=== PATIENT | male | born 1960 | race African-American/Black ===

== ENCOUNTER 2017-03-22 10:22 | Inpatient (IN) | payer BC, OTHER ==
[2017-03-22 10:33] VITALS: BMI 30.8
--- NOTE | 2017-03-22 11:35 | PDOC ---
Attending Attestation - Resident Resident Name: ClaudeMattil - ED Attending Attestation I have performed the following: I have examined & evaluated the patient, The case was reviewed & discussed with the resident, I agree w/resident's findings & plan, Exceptions are as noted - HPI HPI: 03/22/17 11:48 57yo male with slurred speech x 7 days, dx with CVA last night at [facility] and signed out AMA. Here today for further eval. No new complaints. Still with mild slurred speech. - Physicial Exam PE: 03/22/17 11:51 gen: aaox3, nad head: nc/at heent: mild L facial droop, PERRL, EOMI Neck: supple Heart: rrr lungs: cta b/l abd: soft, nt/nd +bs ext: paresthesias to B/l UE, BKA b/l LE, wheelchair bound, muscle strength 5/5 UE Neuro: mild slurred speech, mild expressive aphasia, mild L facial droop. skin: no rashes - Medical Decision Making 03/22/17 13:19 a/p: 57yo male with 1 week hx of slurred speech -out of the window for TPA -had CT head last night that showed cva - will obtain results -will need MRI and admission for cva workup and further eval. 03/22/17 13:[address] Chaudhary from neuro who will see the patient in consult. recommends admission 03/22/17 13:23 call placed to hospitalist for admission. 03/22/17 13:23 ct head from [facility] shows right basal ganglia and r thalamic lacunar infarcts 03/22/17 13:[address] Chandler who accepts pt to service under Dr. Murphy Discharge Disposition - Diagnosis Cerebrovascular accident (CVA) - Discharge Dispostion Condition at time of disposition: Guarded Last Admission D/C Date: 01/21/16 Admit: Yes Heart Score/ECG Review - ECG Intrepretation Comment:: 03/22/17 13:22 sinus tach at 101, nl axis, nl interval, no acute st/t wave findings NIH Stroke Scale - Last Known Well Date/Time & Onset Date Last Known Well: 03/15/17 - Initial Evaluation Level of consciousness: Alert Ask patient the month and their age: Answers both correctly Ask patient to open & close eyes; make fist and let go: Obeys both correctly Best gaze (horizontal eye movement): Normal Visual field testing: No visual field loss Facial paresis (Show teeth/raise eyebrows/close eyes tight): Minor paralysis ( flattened nasolabial fold, asymmetry on smiling) Motor Function: Left Arm: Normal Motor Function: Right Arm: Normal (extends arm 90 (or 45) degrees for 10 seconds without drift Motor Function: Left Leg: Normal (extends leg 30 degrees for 5 seconds without drift) Motor Function: Right Leg: Normal (extends leg 30 degrees for 5 seconds without drift) Limb Ataxia: Untestable (Joint fused or limb amputated), explain: (amputated BKA b/l) Sensory(Use pinprick test arms,legs,trunk,face/side to side): Mild to moderate decrease in sensation Best language (Describe picture, name items, read sentences): No Aphasia Dysarthria (read several words): Mild to moderate slurring of words Extinction and Inattention: No abnormality - Total Score NIH Stroke Scale Score: 3
--- NOTE | 2017-03-22 11:40 | PDOC ---
History of Present Illness - General Chief Complaint: CVA/TIA Stated Complaint: STROKE LIKE SYMPTOMS Time Seen by Provider: 03/22/17 10:45 History Source: Patient Exam Limitations: No Limitations - History of Present Illness Initial Comments: 03/22/17 12:33 57 y.o. M with pmh of DVT/Bl PE, HTN, HLD, DM, neuropathy, and Left BKA/Right foot amputation presenting for slurred speech x 7 days. Patient went to [facility] yesterday and was told he had an acute stroke on CT. He left AMA after he was not given any of his home medications. Patient states his told him he was having intermittent slurred speech. Patient did not feel he was having any slurred speech, so he waited to come to the ED. Patient also endorses lip numbness. Patient denies headache, blurry vision, weakness, numbness, chest pain , sob. Allergies: chlorpromazine, simvastatin Past surgical history: Right foot amputation, left BKA Social history: Current 1/2 ppd smoker x 30 yrs, denies alcohol, previous heroin abuser PMD - Dr. Arroyo ([place]) Vascular Surgery- Dr. Hough Past History - Past Medical History Allergies/Adverse Reactions: Allergies Allergy/AdvReac Type Severity Reaction Status Date / Time chlorpromazine HCl Allergy Intermediate Difficulty Verified 03/22/17 11:43 [From Thorazine] Breathing simvastatin Allergy Intermediate Itching Verified 03/22/17 11:43 Home Medications: Ambulatory Orders RX: Oxycodone HCl [Roxicodone -] 10 mg PO Q8H PRN 04/25/15 RX: Amitriptyline HCl [Elavil -] 50 mg PO BID tablet 01/19/16 RX: Pregabalin [Lyrica -] 150 mg PO TID #7 capsule MDD 3 01/19/16 RX: Trazodone HCl [Desyrel -] 150 mg PO HS tablet 01/19/16 Apixaban [Eliquis] 2.5 mg PO BID 03/22/17 Insulin Glargine,Hum.rec.anlog [Lantus Solostar PEN (NF)] 30 units SQ HS Metformin HCl [Metformin HCl ER] 1,000 mg PO DAILY 03/22/17 Naloxegol Oxalate [Movantik] 25 mg PO DAILY 03/22/17 RX: Omeprazole 20 mg PO DAILY 03/22/17 Anemia: No Asthma: No Cancer: Yes (poor circulation) Cardiac Disorders: No CVA: Yes (multiple TIA no residual) COPD: No CHF: No Dementia: No Diabetes: Yes (neuropathy) GI Disorders: No Disorders: No HTN: Yes Hypercholesterolemia: Yes Liver Disease: No Seizures: No Thyroid Disease: No - Surgical History Abdominal Surgery: No Appendectomy: No Cardiac Surgery: Yes (STENT) Cholecystectomy: No Lung Surgery: No Neurologic Surgery: No Orthopedic Surgery: No - Immunization History Immunization Up to Date: Yes - Suicide/Smoking/Psychosocial Hx Smoking History: Current every day smoker Have you smoked in the past 12 months: Yes Number of Cigarettes Smoked Daily: 10 If you are a former smoker, when did you quit?: NOVEMBER 2014 Cigars Per Day: 10 Information on smoking cessation initiated: No 'Breaking Loose' booklet given: 01/13/16 Hx Alcohol Use: No Drug/Substance Use Hx: No Substance Use Type: None Hx Substance Use Treatment: No Review of Systems - Review of Systems Comments:: 03/22/17 12:37 GENERAL/CONSTITUTIONAL: No fever or chills. No weakness. HEAD, EYES, EARS, NOSE AND THROAT: No change in vision. No ear pain or discharge. No sore throat. +slurred speech CARDIOVASCULAR: No chest pain or shortness of breath RESPIRATORY: No cough, wheezing, or hemoptysis. GASTROINTESTINAL: No nausea, vomiting, diarrhea or constipation. GENITOURINARY: No dysuria, frequency, or change in urination. MUSCULOSKELETAL: No joint or muscle swelling or pain. No neck or back pain. SKIN: No rash NEUROLOGIC: No headache, vertigo, loss of consciousness, or change in strength/ sensation. ENDOCRINE: No increased thirst. No abnormal weight change HEMATOLOGIC/LYMPHATIC: No anemia, easy bleeding, or history of blood clots. ALLERGIC/IMMUNOLOGIC: No hives or skin allergy. *Physical Exam - Vital Signs Last Vital Signs Temp Pulse Resp BP Pulse Ox 98.5 F 118 H 17 149/78 98 03/22/17 10:29 03/22/17 10:29 03/22/17 10:29 03/22/17 10:29 03/22/17 10:29 - Physical Exam Comments: 03/22/17 12:38 GENERAL: Awake, alert, and fully oriented, in no acute distress. +disheveled. + covered in urine HEAD: No signs of trauma, normocephalic, atraumatic EYES: PERRLA, EOMI, sclera anicteric, conjunctiva clear ENT: Oropharynx clear without exudates. Moist mucosa NECK: Normal ROM, supple, no lymphadenopathy, JVD, or masses LUNGS: No distress, speaks full sentences, clear to auscultation bilaterally HEART: Regular rate and rhythm, normal S1 and S2, no murmurs, rubs or gallops, peripheral pulses normal and equal bilaterally. ABDOMEN: Soft, nontender, normoactive bowel sounds. No guarding, no rebound. No masses EXTREMITIES: Normal inspection, Normal range of motion, no edema. No clubbing or cyanosis. +left BKA, +right foot amputation, +right leg venous stasis changes NEUROLOGICAL: Cranial nerves II through XII grossly intact. +minimal slurred speech, Patient in wheelchair, 5/5 strength UE SKIN: Warm, Dry, normal turgor, no rashes or lesions noted. ED Treatment Course - LABORATORY CBC & Chemistry Diagram: 03/22/17 13:00 03/22/17 13:00 Medical Decision Making - Medical Decision Making 03/22/17 13:04 Assessment: 57 y.o. M with pmh of DVT/Bl PE, HTN, HLD, DM, neuropathy, and Left BKA/Right foot amputation presenting for slurred speech x 7 days Plan: -CBC, CMP, Mg, PT/INR, PTT, EKG, CXR 03/22/17 13:44 Ct Head from [facility] shows basal ganglia and thalamic lacunar infarcts Patient admitted to hospitalist *DC/Admit/Observation/Transfer Diagnosis at time of Disposition: Cerebrovascular accident (CVA) - Discharge Dispostion Condition at time of disposition: Guarded
[2017-03-22 13:16] LABS: BASOPHIL 0.5 % (0-2.0); EOSINOPHIL 0.2 % (0-4.5); MCH 29.5 pg (25.7-33.7); MCHC 33.8 g/dl (32.0-35.9); MEAN CELL VOLUME 87.1 fl (80-96); MEAN PLT VOLUME 8.2 fl (7.5-11.1); NEUTROPHILS 84.1 % (42.8-82.8); PLATELET COUNT 199 K/MM3 (134-434); RDW 14.3 % (11.9-15.9); WHITE BLOOD COUNT 8.6 K/mm3 (4.0-10.0)
[2017-03-22 13:30] LABS: INR 1.11 (0.82-1.09); PROTHROMBIN TIME (PATIENT) 12.2 SEC (9.98-11.88)
[2017-03-22 13:33] LABS: ACTIVATED PTT 29.3 SECONDS (26.9-34.4)
--- NOTE | 2017-03-22 13:55 | HP ---
CHIEF COMPLAINT: one week history of facial drop and slurred speech, lip numbness PCP: Dr. Ramírez Arroyo Vasculr surgeon HISTORY OF PRESENT ILLNESS: 57 y.o. M with pmh of DVT/Bl PE, HTN, HLD, DM, neuropathy, and Left BKA/Right foot amputation presenting for slurred speech x 7 days. Patient went to [facility] yesterday and was told he had an acute stroke on CT. He left AMA after he was not given any of his home medications. Patient states his told him he was having intermittent slurred speech. Patient did not feel he was having any slurred speech, so he waited to come to the ED. Patient also endorses lip numbness. Patient denies headache, blurry vision, weakness, numbness, chest pain , sob, N/V/D/, he denies any weakness on numbness in his extremities. He claims he can not make it to bathroom during last week. ER course was notable for: (1)BP: 178/98, Tachycardic (2)EKG: Non specific T wave change in lateral leads (3) Neurology consulted Recent Travel: None PAST MEDICAL HISTORY: HTN, HLD, DM, Left BKA/Right foot amputation, Neuropathy , DVT/PE. PAST SURGICAL HISTORY: Right foot amputation, Left BKA, cataract. Social History: Smokin/2 pack/20 years Alcohol:denied Drugs: Previous heroin/ on methadone Family History: Dad had cancer, mom had breat cancer Allergies chlorpromazine HCl [From Thorazine] Allergy (Intermediate, Verified 03/22/17 11: 43) Difficulty Breathing simvastatin Allergy (Intermediate, Verified 03/22/17 11:43) Itching HOME MEDICATIONS: Home Medications Medication Instructions Recorded Oxycodone HCl [Roxicodone -] 10 mg PO Q8H PRN 04/25/15 Amitriptyline HCl [Elavil -] 50 mg PO BID tablet 01/19/16 Pregabalin [Lyrica -] 150 mg PO TID #7 capsule MDD 3 01/19/16 Trazodone HCl [Desyrel -] 150 mg PO HS tablet 01/19/16 Apixaban [Eliquis] 2.5 mg PO BID 03/22/17 Insulin Glargine,Hum.rec.anlog 30 units SQ HS 03/22/17 [Lantus Solostar PEN (NF)] Metformin HCl [Metformin HCl ER] 1,000 mg PO DAILY 03/22/17 Naloxegol Oxalate [Movantik] 25 mg PO DAILY 03/22/17 Omeprazole 20 mg PO DAILY 03/22/17 REVIEW OF SYSTEMS CONSTITUTIONAL: Absent: fever, chills, diaphoresis, generalized weakness, malaise, loss of appetite, weight change HEENT: Absent: rhinorrhea, nasal congestion, throat pain, throat swelling, difficulty swallowing, mouth swelling, ear pain, eye pain, visual changes CARDIOVASCULAR: Absent: chest pain, syncope, palpitations, irregular heart rate, lightheadedness , peripheral edema RESPIRATORY: Absent: cough, shortness of breath, dyspnea with exertion, orthopnea, wheezing, stridor, hemoptysis GASTROINTESTINAL: Absent: abdominal pain, abdominal distension, nausea, vomiting, diarrhea, constipation, melena, hematochezia GENITOURINARY: Absent: dysuria, frequency, urgency, hesitancy, hematuria, flank pain, genital pain MUSCULOSKELETAL: Absent: myalgia, arthralgia, joint swelling, back pain, neck pain SKIN: Absent: rash, itching, pallor HEMATOLOGIC/IMMUNOLOGIC: Absent: easy bleeding, easy bruising, lymphadenopathy, frequent infections ENDOCRINE: Absent: unexplained weight gain, unexplained weight loss, heat intolerance, cold intolerance NEUROLOGIC: Absent: headache, focal weakness or paresthesias in his lips, dizziness, , seizure, mental status changes, bladder incontinence PSYCHIATRIC: Absent: anxiety, depression, suicidal or homicidal ideation, hallucinations. PHYSICAL EXAMINATION Vital Signs - 24 hr 03/22/17 03/22/17 03/22/17 10:29 13:00 13:28 Temperature 98.5 F Pulse Rate 118 H Pulse Rate [ 92 H Radial] Respiratory 17 18 Rate Blood Pressure 149/78 Blood Pressure 175/86 [Right Arm] O2 Sat by Pulse 98 99 97 Oximetry (%) GENERAL: Awake, alert, and fully oriented, in no acute distress. HEAD: Normal with no signs of trauma. EYES: sclera anicteric, conjunctiva clear. EARS, dry mucous membranes. NECK: Normal range of motion, supple without lymphadenopathy, JVD, or masses. LUNGS: Breath sounds equal, clear to auscultation bilaterally. No wheezes, and no crackles. No accessory muscle use. HEART: Regular rate and rhythm, normal S1 and S2 without murmur, rub or gallop. ABDOMEN: Soft, nontender, not distended, normoactive bowel sounds, no guarding, no rebound, no masses. MUSCULOSKELETAL: Normal range of motion at all joints. No bony deformities or tenderness. UPPER EXTREMITIES: 2+ pulses, warm, well-perfused. No cyanosis. No clubbing. No peripheral edema. LOWER EXTREMITIES: Left BKA/Right foot amputation NEUROLOGICAL: Little slurry speech. smile assymetry left angular drop PSYCHIATRIC: Cooperative. Good eye contact. Appropriate mood and affect. SKIN: Warm, dry, no rashes or lesions noted, normal capillary refill. Laboratory Results - last 24 hr 03/22/17 03/22/17 13:00 13:00 WBC 8.6 RBC 4.29 D Hgb 12.6 D Hct 37.4 D MCV 87.1 MCH 29.5 MCHC 33.8 RDW 14.3 Plt Count 199 D MPV 8.2 Neutrophils % 84.1 H D Lymphocytes % 12.7 D Monocytes % 2.5 L Eosinophils % 0.2 D Basophils % 0.5 Magnesium 1.6 L ASSESSMENT/PLAN: This is a 57 year old man with a history of HTN, hyperlipidemia, type 2 DM, DVT , PE, IVC filter, PAD, left BKA, right foot amputation, depression who presented to the ER with slurred speech, left sided weakness and lip numbness x 7 days. # Possible recent CVA * One wek H/O slurred speech and little facial drop * MRI/MRA of brain * Start aspirin 325 mg in ED, continue 81 mg daily * Has allergy to Zocor * Neurology consult # Hypertension * Currently on no meds * medical record shows Has been on Vasotec, Labetalol, HCTZ in past * Start Vasotec 10 mg daily , increase dose if needed # Hyperlipdemia * Not on any statin due to Zocor allergy # Type 2 DM * Continue Lantus * Hold metformin * Fingersticks with Novolog sliding scale #Diabetic peripheral neuropathy * Continue Lyrica, Elavil # History of DVT/PE * Continue Eliquis 2.5 mg BID daily * Has IVC filter #Depression * Continue home meds Trazodone, Elavil # PAD, * history of left BKA, right foot amputation #FEN * F: On no fluids * E: Monitor * N: low sodium, diabetic diet * # Proph: * DVT: on ELiquis , IVC filter * GI : Protonix 20 mg Po daily * # Dispo * Admit to observ Visit type - Emergency Visit Emergency Visit: Yes ED Registration Date: 03/22/17 Care time: The patient presented to the Emergency Department on the above date and was hospitalized for further evaluation of their emergent condition. - New Patient This patient is new to me today: Yes Date on this admission: 03/23/17 - Critical Care Critical Care patient: No
[2017-03-22 13:59] LABS: ALBUMIN 3.8 g/dl (3.4-5.0); ALK PHOS 157 U/L (45-117); ANION GAP 9 (8-16); BILIRUBIN,TOTAL 0.3 mg/dL (0.2-1.0); CALCIUM 9.1 mg/dL (8.5-10.1); CO2 27 mmol/L (21-32); CREATININE 0.9 mg/dL (0.7-1.3); SGOT/AST 45 U/L (15-37); SGPT/ALT 46 U/L (12-78); TOT PROT 7.6 g/dl (6.4-8.2)
[2017-03-22 14:12] LABS: GLUCOSE,RANDOM 340 mg/dL (74-106)
--- NOTE | 2017-03-22 14:14 | EKG ---
Test Reason : Blood Pressure : / mmHG Vent. Rate : 101 BPM Atrial Rate : 101 BPM P-R Int : 184 ms QRS Dur : 088 ms QT Int : 372 ms P-R-T Axes : 069 046 080 degrees QTc Int : 482 ms SINUS TACHYCARDIA POSSIBLE LEFT ATRIAL ENLARGEMENT BORDERLINE ECG WHEN COMPARED WITH ECG OF 12-JAN-2016 20:48, NONSPECIFIC T WAVE ABNORMALITY NOW EVIDENT IN LATERAL LEADS QT HAS LENGTHENED REPEAT EKG IF CLINICALLY INDICATED Confirmed by CHRISTOFER ANDERSON MD ([id number]) on 03/22/2017 2:13:59 PM Referred By: Confirmed By:CHRISTOFER ANDERSON MD
--- NOTE | 2017-03-22 14:55 | HP ---
CHIEF COMPLAINT: left sided weakness and numbness PCP: Dr. Arroyo in [place] HISTORY OF PRESENT ILLNESS: This is a 57 year old male who was brought to the emergency room by ambulance due to symptoms of lip numbness, slurred speech and left sided weakness for the past 5-7 days. He was recently admitted to [facility] for same symptoms and was found to have a right basal ganglia and right thalamic lacunar infarct, found on head CT. Patient left AMA, claims he was not given his medications. As per patient, stated that he has had intermittent slurred speech since leaving [facility], which prompted him to come to [facility]. Patient admits to lethargy, slurred speech and decreased sensation of left upper and lower extremities. He denies lightheadedness, headache, dizziness, blurry vision, chest pain, sob, weakness. Mr. Brumfield is a diabetic who suffers from diabetic neuropathy, with left BKA and right foot amputation. He also has a past medical history of dvt/PE, hypertension, hyperlipidema. In the ER patient had blood pressure of 178/98, and tachycardic. ECG showing new non specific t wave changes of lateral leads. Neurology consulted, stroke work up indicated. Recent Travel: PAST MEDICAL HISTORY: TIA,DVT/Bl PE, HTN, HLD, DM, neuropathy, and Left BKA/Right foot amputation PAST SURGICAL HISTORY: BKA left Social History: Smokin.2 ppd Alcohol:no Drugs: previous heroin user Family History: Allergies chlorpromazine HCl [From Thorazine] Allergy (Intermediate, Verified 03/22/17 11: 43) Difficulty Breathing simvastatin Allergy (Intermediate, Verified 03/22/17 11:43) Itching HOME MEDICATIONS: Home Medications Medication Instructions Recorded Oxycodone HCl [Roxicodone -] 10 mg PO Q8H PRN 04/25/15 Amitriptyline HCl [Elavil -] 50 mg PO BID tablet 01/19/16 Pregabalin [Lyrica -] 150 mg PO TID #7 capsule MDD 3 01/19/16 Trazodone HCl [Desyrel -] 150 mg PO HS tablet 01/19/16 Apixaban [Eliquis] 2.5 mg PO BID 03/22/17 Insulin Glargine,Hum.rec.anlog 30 units SQ HS 03/22/17 [Lantus Solostar PEN (NF)] Metformin HCl [Metformin HCl ER] 1,000 mg PO DAILY 03/22/17 Naloxegol Oxalate [Movantik] 25 mg PO DAILY 03/22/17 Omeprazole 20 mg PO DAILY 03/22/17 REVIEW OF SYSTEMS CONSTITUTIONAL: Positive; malaise, lethargy Absent: fever, chills, diaphoresis, generalized weakness, malaise, loss of appetite, weight change HEENT: Absent: rhinorrhea, nasal congestion, throat pain, throat swelling, difficulty swallowing, mouth swelling, ear pain, eye pain, visual changes CARDIOVASCULAR: Absent: chest pain, syncope, palpitations, irregular heart rate, lightheadedness , peripheral edema RESPIRATORY: Absent: cough, shortness of breath, dyspnea with exertion, orthopnea, wheezing, stridor, hemoptysis GASTROINTESTINAL: Absent: abdominal pain, abdominal distension, nausea, vomiting, diarrhea, constipation, melena, hematochezia GENITOURINARY: Absent: dysuria, frequency, urgency, hesitancy, hematuria, flank pain, genital pain MUSCULOSKELETAL: Absent: myalgia, arthralgia, joint swelling, back pain, neck pain SKIN: Absent: rash, itching, pallor HEMATOLOGIC/IMMUNOLOGIC: Absent: easy bleeding, easy bruising, lymphadenopathy, frequent infections ENDOCRINE: Absent: unexplained weight gain, unexplained weight loss, heat intolerance, cold intolerance NEUROLOGIC: Positive: paresthesias Absent: headache, focal weakness or, dizziness, unsteady gait, seizure, mental status changes, bladder or bowel incontinence PSYCHIATRIC: Positive:depression Absent: anxiety, suicidal or homicidal ideation, hallucinations. PHYSICAL EXAMINATION Vital Signs - 24 hr 03/22/17 03/22/17 03/22/17 10:29 13:00 13:28 Temperature 98.5 F Pulse Rate 118 H Pulse Rate [ 92 H Radial] Respiratory 17 18 Rate Blood Pressure 149/78 Blood Pressure 175/86 [Right Arm] O2 Sat by Pulse 98 99 97 Oximetry (%) 03/22/17 14:18 Temperature Pulse Rate Pulse Rate [ 100 H Radial] Respiratory 12 Rate Blood Pressure Blood Pressure 178/99 [Right Arm] O2 Sat by Pulse 100 Oximetry (%) GENERAL: Not willing/able to answer in full sentences, alert, and fully oriented , HEAD: Normal with no signs of trauma. EYES: Pupils equal, round and reactive to light, extraocular movements intact, sclera anicteric, conjunctiva clear. No lid lag. bilateral cataract EARS, NOSE, THROAT: Ears normal, nares patent, oropharynx clear without exudates. Moist mucous membranes. NECK: Normal range of motion, supple without lymphadenopathy, JVD, or masses. LUNGS: Breath sounds equal decreased, clear to auscultation bilaterally. No wheezes, and no crackles. No accessory muscle use. HEART: Regular rate and rhythm, normal S1 and S2 without murmur, rub or gallop. ABDOMEN: Soft, nontender, not distended, normoactive bowel sounds, no guarding, no rebound, no masses. No hepatomegaly or splenomegaly. MUSCULOSKELETAL: Normal range of motion at all joints. No bony deformities or tenderness. No CVA tenderness. UPPER EXTREMITIES: 2+ pulses, warm, well-perfused. No cyanosis. No clubbing. No peripheral edema. LOWER EXTREMITIES: 2+ pulses, warm, well-perfused. Left BKA, right foot amputation NEUROLOGICAL: Cranial nerves II-XII intact. slowed speech, PSYCHIATRIC: Cooperative. Good eye contact. depressed mood flat affect. SKIN: Warm, dry, normal turgor, no rashes or lesions noted, normal capillary refill. Laboratory Results - last 24 hr 03/22/17 03/22/17 03/22/17 13:00 13:00 13:00 WBC 8.6 RBC 4.29 D Hgb 12.6 D Hct 37.4 D MCV 87.1 MCH 29.5 MCHC 33.8 RDW 14.3 Plt Count 199 D MPV 8.2 Neutrophils % 84.1 H D Lymphocytes % 12.7 D Monocytes % 2.5 L Eosinophils % 0.2 D Basophils % 0.5 PT with INR 12.20 H INR 1.11 PTT (Actin FS) 29.3 Sodium 134 L Potassium 4.5 Chloride 98 Carbon Dioxide 27 Anion Gap 9 BUN 8 Creatinine 0.9 D Creat Clearance w eGFR > 60 Random Glucose 340 H* Calcium 9.1 Magnesium Total Bilirubin 0.3 D AST 45 H D ALT 46 D Alkaline Phosphatase 157 H Total Protein 7.6 Albumin 3.8 D 03/22/17 13:00 WBC RBC Hgb Hct MCV MCH MCHC RDW Plt Count MPV Neutrophils % Lymphocytes % Monocytes % Eosinophils % Basophils % PT with INR INR PTT (Actin FS) Sodium Potassium Chloride Carbon Dioxide Anion Gap BUN Creatinine Creat Clearance w eGFR Random Glucose Calcium Magnesium 1.6 L Total Bilirubin AST ALT Alkaline Phosphatase Total Protein Albumin ASSESSMENT/PLAN: 57 year old male with a past medical history of TIA, DM, diabetic neuropathy, L BKA and right foot amputation, who presented with slurred speech and left upper and lower extremity paresthesias # slurred speech, weakness secondary to recent stroke:: -ct head from [facility] shows right basal ganglia and r thalamic lacunar infarcts -secondary stroke precautions -echo, carotid doppler -brain MRI/MRA -bedside swallow eval -allergic to statins -asa 81mg qd -neuro consult #hypertension: -start vasotec #hld: -lipid panel #hx. dvt/pe: -cont eliquis /dvt filter Visit type - Emergency Visit Emergency Visit: Yes ED Registration Date: 03/22/17 Care time: The patient presented to the Emergency Department on the above date and was hospitalized for further evaluation of their emergent condition. - New Patient This patient is new to me today: Yes Date on this admission: 03/22/17 - Critical Care Critical Care patient: No
[2017-03-22] MEDS ORDERED: SODIUM CHLORIDE 500 ML IV STA (15:38)
[2017-03-22] MEDS: ASPIRIN COATED 81 MG TABLET.EC PO SCH (16:57)
[2017-03-22] MEDS ORDERED: ENALAPRIL MALEATE 10 MG TABLET (FP) PO ONE (17:00)
[2017-03-22] MEDS: INSULIN SLIDING SCALE (NOVOLOG) 1 VIAL SQ SCH ×2 (17:01→21:26)
--- NOTE | 2017-03-22 18:54 | PN ---
Teaching Attending Note Name of Resident: Kennedy Campbell ATTENDING PHYSICIAN STATEMENT I saw and evaluated the patient. I reviewed the resident's note and discussed the case with the resident. I agree with the resident's findings and plan as documented. SUBJECTIVE: This is a 57 year old man with a history of HTN, hyperlipidemia, type 2 DM, DVT, PE, left BKA, right foot amputation who comes to the ER today because of slurred speech, left sided weakness, and numbness of his lips. His reports that his speech has been slurred intermittently over the last 7 days. He was seen in the [facility] ER yesterday for these symptoms but left AMA. CT done there showed chronic right basal ganglia and right thalamic lacunar infarcts. OBJECTIVE: Vital Signs Period Temp Pulse Resp BP Sys/Rocha Pulse Ox Last 24 Hr 98.4 F-98.5 F 92-118 12-18 149-193/78-99 96-100 HEART: S1S2, RRR LUNGS: Clear ABDOMEN: Soft, non-tender, non-distended, normal BS EXTREMITIES: s/p left BKA, s/p right foot amputation Home Medications Medication Instructions Recorded Oxycodone HCl [Roxicodone -] 10 mg PO Q8H PRN 04/25/15 Amitriptyline HCl [Elavil -] 50 mg PO BID tablet 01/19/16 Pregabalin [Lyrica -] 150 mg PO TID #7 capsule MDD 3 01/19/16 Trazodone HCl [Desyrel -] 150 mg PO HS tablet 01/19/16 Apixaban [Eliquis] 2.5 mg PO BID 03/22/17 Insulin Glargine,Hum.rec.anlog 30 units SQ HS 03/22/17 [Lantus Solostar PEN (NF)] Metformin HCl [Metformin HCl ER] 1,000 mg PO DAILY 03/22/17 Naloxegol Oxalate [Movantik] 25 mg PO DAILY 03/22/17 Omeprazole 20 mg PO DAILY 03/22/17 ASSESSMENT AND PLAN: This is a 57 year old man with a history of HTN, hyperlipidemia, type 2 DM, DVT , PE, IVC filter, PAD, left BKA, right foot amputation, depression who presented to the ER with slurred speech, left sided weakness and lip numbness x 7 days. 1. Possible recent CVA - MRI/MRA of brain - Start aspirin - Has allergy to Zocor - Neurology consult 2. Hypertension - Currently on no meds - Has been on Vasotec, Labetalol, HCTZ in past - Start Vasotec 3. Hyperlipdemia - Not on statin secondary to Zocor allergy 4. Type 2 DM - Continue Lantus - Hold metformin - Fingersticks with Novolog sliding scale 5. Diabetic peripheral neuropathy - Continue Lyrica, Elavil 6. History of DVT/PE - Continue Eliquis - Has IVC filter 7. Depression - Continue Trazodone, Elavil 8. PAD, history of left BKA, right foot amputation
[2017-03-22] MEDS ORDERED: INSULIN (NOVOLOG) ASPART 100 UNITS/ML 10ML VIAL ONE (18:55)
[2017-03-22 19:45] LABS: URINE APPEARANCE CLEAR; URINE BILIRUBIN NEGATIVE (NEGATIVE); URINE BLOOD 2+ (NEGATIVE); URINE COLOR YELLOW; URINE GLUCOSE (UA) 3+ (NEGATIVE); URINE KETONE 1+ (NEGATIVE); URINE LEUK ESTERASE NEGATIVE (NEGATIVE); URINE NITRITE POSITIVE (NEGATIVE); URINE UROBILINOGEN NEGATIVE mg/dL (0.2-1.0)
[2017-03-22 19:49] LABS: URINE PROTEIN 3+ (NEGATIVE)
[2017-03-22 19:55] LABS: URINE MUCUS RARE; URINE RBC 21 /hpf (0-3); URINE WBC 6 /hpf (3-5)
--- NOTE | 2017-03-22 21:23 | HOSP ---
Subjective - Review of Symptoms Events since last encounter: Called by nurse because pt's BP is high (190's systolic). Pt has been refusing medications as well as diagnostic studies. Pt has had risks of refusing care explained. Will continue to make efforts to control pressure as permitted by the patient. Physical Examination Vital Signs: Vital Signs Temperature 98.4 F 03/22/17 17:48 Pulse Rate 95 H 03/22/17 17:48 Respiratory Rate 18 03/22/17 18:03 Blood Pressure 193/95 03/22/17 17:48 O2 Sat by Pulse Oximetry (%) 96 03/22/17 18:03 Visit type - Emergency Visit Emergency Visit: No - New Patient This patient is new to me today: No - Critical Care Critical Care patient: No
[2017-03-22] MEDS: PREGABALIN 50 MG CAPSULE PO SCH (21:26)
[2017-03-22] MEDS: INSULIN DETEMIR 100 UNITS/ML MDV SQ SCH (21:26)
[2017-03-22] MEDS: traZODone HCL 50 MG TABLET (FP) PO SCH (21:26)
[2017-03-22] MEDS: AMITRIPTYLINE HCL 25 MG TABLET (FP) PO SCH (21:26)
[2017-03-22] MEDS: oxyCODONE HCL 5 MG TABLET PO PRN (21:27)
[2017-03-22] MEDS ORDERED: HEPARIN NA (PORCINE) 5,000 UNITS/ML 1ML VIAL SQ SCH (22:00)
[2017-03-22] MEDS ORDERED: PANTOPRAZOLE SODIUM 40 MG in SODIUM CHLORIDE 100 ML IVPB SCH (22:00)
[2017-03-23] MEDS: INSULIN SLIDING SCALE (NOVOLOG) 1 VIAL SQ SCH ×4 (06:32→21:39)
[2017-03-23] MEDS: PREGABALIN 50 MG CAPSULE PO SCH ×3 (06:33→21:39)
[2017-03-23] MEDS ORDERED: INSULIN (NOVOLOG) ASPART 100 UNITS/ML 10ML VIAL ONE ×2 (07:27→10:50)
[2017-03-23 07:53] LABS: BASOPHIL 0.4 % (0-2.0); EOSINOPHIL 1.4 % (0-4.5); MCH 28.9 pg (25.7-33.7); MCHC 33.2 g/dl (32.0-35.9); MEAN CELL VOLUME 86.9 fl (80-96); MEAN PLT VOLUME 8.2 fl (7.5-11.1); NEUTROPHILS 72.1 % (42.8-82.8); PLATELET COUNT 198 K/MM3 (134-434); RDW 13.8 % (11.9-15.9); WHITE BLOOD COUNT 9.2 K/mm3 (4.0-10.0)
[2017-03-23 08:14] LABS: ALBUMIN 3.3 g/dl (3.4-5.0)
[2017-03-23] MEDS ORDERED: METHADONE HCL 40 MG DISPERSABLE TABLET ONE (08:19)
[2017-03-23] MEDS ORDERED: METHADONE HCL 10 MG TABLET ONE (08:20)
[2017-03-23 08:24] LABS: ALK PHOS 140 U/L (45-117); ANION GAP 7 (8-16); BILIRUBIN,TOTAL 0.4 mg/dL (0.2-1.0); CALCIUM 9.2 mg/dL (8.5-10.1); CHOLESTEROL 226 mg/dL (50-200); CO2 30 mmol/L (21-32); CREATININE 0.9 mg/dL (0.7-1.3); GLUCOSE,RANDOM 147 mg/dL (74-106); MAGNESIUM 1.7 mg/dL (1.8-2.4); PHOSPHOROUS 4.1 mg/dL (2.5-4.9); SGOT/AST 45 U/L (15-37); SGPT/ALT 40 U/L (12-78); TOT PROT 6.8 g/dl (6.4-8.2)
[2017-03-23] MEDS: METHADONE 160 MG, METHADONE 20 MG PO SCH (08:40)
--- NOTE | 2017-03-23 09:18 | CON.NEURO ---
Consult - History of Present Illness History of Present Illness: 57 y.o. M with pmh of DVT/Bl PE, HTN, HLD, DM, neuropathy, and Left BKA/Right foot amputation presenting for slurred speech x 7 days. Patient went to [facility] yesterday and was told he had an acute stroke on CT. He left AMA after he was not given any of his home medications. Patient states his told him he was having intermittent slurred speech. Patient did not feel he was having any slurred speech, so he waited to come to the ED. Patient also endorses lip numbness. Patient denies headache, blurry vision, weakness, numbness, chest pain , sob, N/V/D; he is using wheelchair and residual weakness of his legs ( from back surgery ?). - History Source History Provided By: Patient - Past Medical History TRAUMA REGISTRAR: Yes: TIA Cardio/Vascular: Yes: Deep Vein Thrombosis, HTN, Hyperlipdemia, Other Pulmonary: Yes: Pulmonary Embolus Psych: Yes: Depression Musculoskeletal: Yes: Other (amputations, foot gangrene) Endocrine: Yes: Diabetes Mellitus - Past Surgical History Past Surgical History: Yes: Amputation (Right 1st and 2nd toes) - Alcohol/Substance Use Hx Alcohol Use: No History of Substance Use: reports: None - Smoking History Smoking history: Current every day smoker Have you smoked in the past 12 months: Yes Aproximately how many cigarettes per day: 10 If you are a former smoker, when did you quit?: NOVEMBER 2014 - Social History ADL: Independent History of Recent Travel: No Home Medications - Allergies Allergies/Adverse Reactions: Allergies Allergy/AdvReac Type Severity Reaction Status Date / Time chlorpromazine HCl Allergy Intermediate Difficulty Verified 03/22/17 11:43 [From Thorazine] Breathing simvastatin Allergy Intermediate Itching Verified 03/22/17 11:43 - Home Medications Home Medications: Ambulatory Orders Oxycodone HCl [Roxicodone -] 10 mg PO Q8H PRN 04/25/15 Amitriptyline HCl [Elavil -] 50 mg PO BID tablet 01/19/16 Pregabalin [Lyrica -] 150 mg PO TID #7 capsule MDD 3 01/19/16 Trazodone HCl [Desyrel -] 150 mg PO HS tablet 01/19/16 Apixaban [Eliquis] 2.5 mg PO BID 03/22/17 Insulin Glargine,Hum.rec.anlog [Lantus Solostar PEN (NF)] 30 units SQ HS Metformin HCl [Metformin HCl ER] 1,000 mg PO DAILY 03/22/17 Naloxegol Oxalate [Movantik] 25 mg PO DAILY 03/22/17 Omeprazole 20 mg PO DAILY 03/22/17 Methadone [Dolophine -] 180 mg PO DAILY 03/23/17 Physical Exam-Neuro Vital Signs: Vital Signs Temperature 98.0 F 03/23/17 06:00 Pulse Rate 106 H 03/23/17 06:00 Respiratory Rate 20 03/23/17 06:00 Blood Pressure 158/91 03/23/17 06:00 O2 Sat by Pulse Oximetry (%) 95 03/22/17 22:00 Constitutional: Yes: Well Nourished, No Distress Labs: CBC, BMP 03/23/17 06:20 03/23/17 06:20 INR, PTT INR 1.11 (0.82-1.09) 03/22/17 13:00 - Neuro Exam Level Of Consciousness: Yes: Alert (awake and conversive, EOMi, No facial, mild dysarthria --though no aphasia, no focal weakness in UE, leg braces LE, gait not tested ) Problem List - Problems (1) 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 M with pmh of DVT/Bl PE, HTN, HLD, DM, neuropathy, and Left BKA/Right foot amputation and p/w subacute onset dysarthria, abnl outpt CT HD , already on AC for DVT r/o subacute stroke , check MRI BRAIn, Dopllers, ECHO, lipids cont AC for now DM uncontrolled --consider endrocrine /nutrition consult Dr Chaudhary [phone]
[2017-03-23] MEDS: PANTOPRAZOLE 20 MG TABLET (FP) PO SCH (09:19)
[2017-03-23] MEDS: ASPIRIN COATED 81 MG TABLET.EC PO SCH ×2 (09:20→09:33)
[2017-03-23] MEDS: AMITRIPTYLINE HCL 25 MG TABLET (FP) PO SCH ×2 (09:20→21:39)
[2017-03-23] MEDS: oxyCODONE HCL 5 MG TABLET PO PRN ×2 (09:24→21:46)
[2017-03-23] MEDS ORDERED: ENALAPRIL MALEATE 10 MG TABLET (FP) PO SCH (10:00)
[2017-03-23] MEDS ORDERED: METHADONE HCL 40 MG DISPERSABLE TABLET PO SCH (10:00)
[2017-03-23] MEDS ORDERED: APIXABAN 2.5 MG TABLET PO SCH (10:00)
[2017-03-23] MEDS ORDERED: PATIENT'S OWN MEDICATION (NON-FORMULARY) (Naloxegol Oxalate [Movantik] 25 MG) PO SCH (10:00)
[2017-03-23] MEDS ORDERED: MAGNESIUM OXIDE 400 MG TABLET (FP) PO ONE (12:45)
--- NOTE | 2017-03-23 15:00 | PN ---
Progress Note (short form) - Note Progress Note: Subjective: The patient was seen and examined in his wheelchair. He reports being here because his noticed he has slurred speech about 1 week ago. He reports having been evaluated at [facility], but signed out against medical advice. Current Medications Generic Name Dose Route Start Last Admin Trade Name Freq PRN Reason Stop Dose Admin Amitriptyline HCl 50 mg 03/22/17 22:00 03/23/17 09:20 Elavil - PO 50 mg BID MERON Administration Apixaban 5 mg 03/23/17 14:47 Eliquis - PO BID MERON Aspirin 81 mg 03/22/17 15:45 03/23/17 09:33 Ecotrin - PO Not Given DAILY MERON Enalapril Maleate 10 mg 03/23/17 10:00 03/23/17 09:20 Vasotec - PO 10 mg DAILY MERON Administration Insulin Aspart 1 vial 03/22/17 16:30 03/23/17 11:13 Novolog Vial Sliding Scale - SQ 10 unit ACHS MERON Administration Protocol Insulin Detemir 30 units 03/22/17 22:00 03/22/17 21:26 Levemir Vial SQ 30 units HS MERON Administration Methadone HCl 160 mg/ 180 mg 03/23/17 08:45 03/23/17 08:40 Methadone HCl 20 mg PO 180 mg DAILY@0800 MERON Administration Non-Formulary Medication 25 mg 03/23/17 10:00 Naloxegol Oxalate [Movantik] PO DAILY MERON Oxycodone HCl 10 mg 03/22/17 16:59 03/23/17 09:24 Roxicodone - PO 10 mg Q8H PRN Administration PAIN Pantoprazole Sodium 20 mg 03/23/17 10:00 03/23/17 09:19 Protonix - PO 20 mg DAILY MERON Administration Pregabalin 150 mg 03/22/17 22:00 03/23/17 14:15 Lyrica - PO 150 mg TID MERON Administration Trazodone HCl 150 mg 03/22/17 22:00 03/22/17 21:26 Desyrel - PO 150 mg HS MERON Administration Objective: Vital Signs Period Temp Pulse Resp BP Sys/Rocha Pulse Ox Last 24 Hr 98.0 F-98.4 F 93-110 16-20 153-193/81-95 95-96 Physical Exam: General: NAD, A&Ox3 Lungs: CTA bilaterally Heart: RRR, S1S2 Abd: Soft, non-tender. Normoactive bowel sounds Ext: Left BKA. Right lower extremity with brace Neuro: Mild right facial droop. Upper extremities 5/5 muscle strength b/l. RLE 4 /5 muscle strength. LLE 5/5 muscle strength CBCD WBC 9.2 K/mm3 (4.0-10.0) 03/23/17 06:20 RBC 4.11 M/mm3 (4.00-5.60) 03/23/17 06:20 Hgb 11.9 GM/dL (11.7-16.9) 03/23/17 06:20 Hct 35.7 % (35.4-49) 03/23/17 06:20 MCV 86.9 fl (80-96) 03/23/17 06:20 MCHC 33.2 g/dl (32.0-35.9) 03/23/17 06:20 RDW 13.8 % (11.9-15.9) 03/23/17 06:20 Plt Count 198 K/MM3 (134-434) 03/23/17 06:20 MPV 8.2 fl (7.5-11.1) 03/23/17 06:20 CMP Sodium 138 mmol/L (136-145) 03/23/17 06:20 Potassium 3.6 mmol/L (3.5-5.1) 03/23/17 06:20 Chloride 101 mmol/L (98-107) 03/23/17 06:20 Carbon Dioxide 30 mmol/L (21-32) 03/23/17 06:20 Anion Gap 7 (8-16) L 03/23/17 06:20 BUN 9 mg/dL (7-18) 03/23/17 06:20 Creatinine 0.9 mg/dL (0.7-1.3) 03/23/17 06:20 Creat Clearance w eGFR > 60 (>60) 03/23/17 06:20 Random Glucose 147 mg/dL (74-106) H D 03/23/17 06:20 Calcium 9.2 mg/dL (8.5-10.1) 03/23/17 06:20 Total Bilirubin 0.4 mg/dL (0.2-1.0) D 03/23/17 06:20 AST 45 U/L (15-37) H 03/23/17 06:20 ALT 40 U/L (12-78) 03/23/17 06:20 Alkaline Phosphatase 140 U/L (45-117) H 03/23/17 06:20 Total Protein 6.8 g/dl (6.4-8.2) 03/23/17 06:20 Albumin 3.3 g/dl (3.4-5.0) L 03/23/17 06:20 Assessment: This is a 57 year old male with PMHx of HTN, hyperlipidemia, DMII, DVT/PE (on Eliquis 2.5mg bid at home), left BKA, who presented to the ED after signing out AMA from [facility] for an acute CVA with slurred speech. Plan: 1) Neuro: Acute CVA - MRI with several small acute infarcts scattered within the right frontal lobe , anterior right temporal lobe, and right thalamus/posterior limb of the internal capsule. These are most likely embolic - Patient was on Eliquis 2.5 mg po bid for hx of DVT/PE. Called Wayne BARNES ([phone]) who outpatient pharmacy verified gave him the last Rx for Eliquis at this dosage. Spoke to MOLLY Angeles who states the patient reported he was on that medication, but is not aware at who initiated it or the patients buckle attaching machine operator's name. Asked the patient who prescribed him Eliquis and he states Wayne Paredes MD who also works in the same practice as MOLLY Angeles. At this time, given his age, weight, renal status, hx of prior DVT/PE, and now acute CVA , will increase Eliquis to 5mg po bid as stated for recommended dosing - Cannot start statin as the patient reportedly has allergy to simvastatin - ASA 81mg po daily (patient refused today) - ECHO reviewed - Carotid dopplers with no hemodynamically significant stenosis - Will need RUDDY as CVAs appear to be embolic - BP control - PT consult - Speech and swallow evaluation - Appreciate neurology consult - F/u cardiology consult (discussed case with Dr. Nathan) 2) Cardiology: Hx of DVT/PE - Patient was on Xarelto 20mg po daily in 2016 per records. Unknown when/who changed him to Eliquis 2.5mg po bid. Will increase dose as above HTN - Continue Enalapril - BP control, consider adding BB if remains hypertensive Hyperlipidemia - Patient has allergy to statin 3) Endocrine: DM - Hold metformin - Levemir 30u sq qhs - BGM ACHS - ISS ACHS 4) F/E/N: - Hypomagnesemia: replete - Diabetic diet - Monitor electrolyes 5) Prophylaxis: - On Eliquis - PT evaluation 6) Dispo: - Requires continued inpatient care CODE STATUS: FULL CODE Visit type - Emergency Visit Emergency Visit: Yes ED Registration Date: 03/22/17 Care time: The patient presented to the Emergency Department on the above date and was hospitalized for further evaluation of their emergent condition. - New Patient This patient is new to me today: Yes Date on this admission: 03/23/17 - Critical Care Critical Care patient: No
--- NOTE | 2017-03-23 18:17 | CON.CARD ---
Consult Consult Specialty:: Cardiology Referred by:: Hospitalist Medicine Reason for Consultation:: Embolic strokes - History of Present Illness Chief Complaint: Dysarthria History of Present Illness: 57 y.o. M with pmh of DVT/Bl PE post IVC filter on low-dose Eliqis, HTN, HLD, DM , neuropathy, and Left BKA/Right foot amputation presented for slurred speech and left-sided weakness. Patient went to [facility] yesterday and was told he had an acute stroke on CT. He left AMA after he was not given any of his home medications. Patient states his told him he was having intermittent slurred speech. MRI confirms embolic strokes, has been refusing medications and diagnostic testing in-house. - History Source History Provided By: Medical Record Limitations to Obtaining History: Clinical Condition - Past Medical History GUIDEMAN: Yes: TIA Cardio/Vascular: Yes: Deep Vein Thrombosis, HTN, Hyperlipdemia, Other Pulmonary: Yes: Pulmonary Embolus Psych: Yes: Depression Musculoskeletal: Yes: Other (amputations, foot gangrene) Endocrine: Yes: Diabetes Mellitus - Past Surgical History Past Surgical History: Yes: Amputation (Right 1st and 2nd toes) - Alcohol/Substance Use Hx Alcohol Use: No History of Substance Use: reports: None - Smoking History Smoking history: Current every day smoker Have you smoked in the past 12 months: Yes Aproximately how many cigarettes per day: 10 If you are a former smoker, when did you quit?: NOVEMBER 2014 - Social History ADL: Independent History of Recent Travel: No Home Medications - Allergies Allergies/Adverse Reactions: Allergies Allergy/AdvReac Type Severity Reaction Status Date / Time chlorpromazine HCl Allergy Intermediate Difficulty Verified 03/22/17 11:43 [From Thorazine] Breathing simvastatin Allergy Intermediate Itching Verified 03/22/17 11:43 - Home Medications Home Medications: Ambulatory Orders Oxycodone HCl [Roxicodone -] 10 mg PO Q8H PRN 04/25/15 Amitriptyline HCl [Elavil -] 50 mg PO BID tablet 01/19/16 Pregabalin [Lyrica -] 150 mg PO TID #7 capsule MDD 3 01/19/16 Trazodone HCl [Desyrel -] 150 mg PO HS tablet 01/19/16 Apixaban [Eliquis] 2.5 mg PO BID 03/22/17 Insulin Glargine,Hum.rec.anlog [Lantus Solostar PEN (NF)] 30 units SQ HS Metformin HCl [Metformin HCl ER] 1,000 mg PO DAILY 03/22/17 Naloxegol Oxalate [Movantik] 25 mg PO DAILY 03/22/17 Omeprazole 20 mg PO DAILY 03/22/17 Methadone [Dolophine -] 180 mg PO DAILY 03/23/17 Review of Systems - Review of Systems Neurological: reports: Change in Speech Vital Signs: Vital Signs Temperature 98.2 F 03/23/17 14:17 Pulse Rate 105 H 03/23/17 14:17 Respiratory Rate 16 03/23/17 14:17 Blood Pressure 154/81 03/23/17 14:17 O2 Sat by Pulse Oximetry (%) 96 03/23/17 14:00 Constitutional: Yes: No Distress, Calm Neck: Yes: Supple Respiratory: Yes: Regular, Diminished Gastrointestinal: Yes: Normal Bowel Sounds, Soft, Abdomen, Obese Cardiovascular: Yes: Regular Rate and Rhythm JVD: No Carotid Bruit: No Heart Sounds: Yes: S1, S2 Murmur: Yes: Systolic Murmur Extremities: Yes: Amputation (Left BKA) Edema: No - Other Data Labs, Other Data: INR, PTT INR 1.11 (0.82-1.09) 03/22/17 13:00 Imaging - Results MRI: Report Reviewed (Right frontal, anterior right temporal, right thalamus/ posterior limb of internal capsule c/w embolic etiology) Problem List - Problems (1) Cerebrovascular accident (CVA) Code(s): I63.9 - CEREBRAL INFARCTION, UNSPECIFIED Qualifiers: CVA mechanism: embolism (2) Dysarthria as late effect of cerebrovascular accident (CVA) Code(s): I69.322 - DYSARTHRIA FOLLOWING CEREBRAL INFARCTION (3) DVT (deep venous thrombosis) Code(s): I82.409 - ACUTE EMBOLISM AND THOMBOS UNSP DEEP VN UNSP LOWER EXTREMITY Qualifiers: Affected thrombotic vein of extremity: unspecified vein of extremity (4) Diabetes mellitus, insulin dependent (IDDM), uncontrolled Code(s): E10.65 - TYPE 1 DIABETES MELLITUS WITH HYPERGLYCEMIA Qualifiers: Diabetes mellitus complication status: with hyperglycemia Qualified Code(s): E10.65 - Type 1 diabetes mellitus with hyperglycemia (5) IDDM (insulin dependent diabetes mellitus) Code(s): E11.9 - TYPE 2 DIABETES MELLITUS WITHOUT COMPLICATIONS Z79.4 - SENIOR CARE (CURRENT) USE OF INSULIN (6) History of DVT (deep vein thrombosis) Code(s): Z86.718 - PERSONAL HISTORY OF OTHER VENOUS THROMBOSIS AND EMBOLISM (7) History of pulmonary embolus (PE) Code(s): Z86.711 - PERSONAL HISTORY OF PULMONARY EMBOLISM (8) Hypertension Code(s): I10 - ESSENTIAL (PRIMARY) HYPERTENSION Qualifiers: Hypertension type: essential hypertension Qualified Code(s): I10 - Essential (primary) hypertension (9) Neuropathy associated with endocrine disorder Code(s): E34.9 - ENDOCRINE DISORDER, UNSPECIFIED G63 - POLYNEUROPATHY IN DISEASES CLASSIFIED ELSEWHERE (10) Opioid dependence on agonist therapy Code(s): F11.20 - OPIOID DEPENDENCE, UNCOMPLICATED (11) Diabetic neuropathy Code(s): E11.40 - TYPE 2 DIABETES MELLITUS WITH DIABETIC NEUROPATHY, UNSP Qualifiers: Diabetes mellitus type: type 2 Diabetes mellitus complication detail: diabetic polyneuropathy Qualified Code(s): E11.42 - Type 2 diabetes mellitus with diabetic polyneuropathy (12) Presence of IVC filter Code(s): Z95.828 - PRESENCE OF OTHER VASCULAR IMPLANTS AND GRAFTS Assessment/Plan Echo: Normal LV size and function, tr-mild MR 1. Dysarthria and left-sided weakness referable to acute right embolic stroke 2. H/o DVT/PE s/p IVC filter on low dose Eliquis 3. PAD s/p left BKA, right foot amputation 4. HTN 5. Uncontrolled DM with neuropathy 6. Hyperlipidemia with Zocor reaction 7. Opiate dependence P:1. Monitor on telemetry to r/o PAF, increase Eliquis 5 bid in meantime 2. Optimize glycemic control, check TSH 3. Increase Vasotec 10 bid with uptitration as tolerated 4. Start Zetia 10 qd given statin insensitivity 5. Not ideal RUDDY candidate, PT and speech therapy 6. Thank you for consultative opportunity
[2017-03-23] MEDS: EZETIMIBE 10 MG TABLET (FP) PO SCH (18:51)
[2017-03-23] MEDS: ENALAPRIL MALEATE 10 MG TABLET (FP) PO SCH (21:39)
[2017-03-23] MEDS: traZODone HCL 50 MG TABLET (FP) PO SCH (21:39)
[2017-03-23] MEDS: APIXABAN 5 MG TABLET PO SCH (21:39)
[2017-03-23] MEDS: INSULIN DETEMIR 100 UNITS/ML MDV SQ SCH (21:40)
[2017-03-24] MEDS: PREGABALIN 50 MG CAPSULE PO SCH ×3 (04:30→22:08)
[2017-03-24] MEDS ORDERED: INSULIN (NOVOLOG) ASPART 100 UNITS/ML 10ML VIAL ONE ×2 (05:56→12:16)
[2017-03-24] MEDS: INSULIN SLIDING SCALE (NOVOLOG) 1 VIAL SQ SCH ×5 (05:59→22:18)
[2017-03-24] MEDS ORDERED: PT OWN MED DRAWER 7, Y5N ONE (09:34)
[2017-03-24] MEDS: AMITRIPTYLINE HCL 25 MG TABLET (FP) PO SCH ×2 (09:36→22:18)
[2017-03-24] MEDS: EZETIMIBE 10 MG TABLET (FP) PO SCH (09:36)
[2017-03-24] MEDS: ENALAPRIL MALEATE 10 MG TABLET (FP) PO SCH ×2 (09:36→22:07)
[2017-03-24] MEDS: PANTOPRAZOLE 20 MG TABLET (FP) PO SCH (09:36)
[2017-03-24] MEDS: APIXABAN 5 MG TABLET PO SCH ×2 (09:37→22:07)
--- NOTE | 2017-03-24 09:39 | PN ---
Progress Note (short form) - Note Progress Note: Subjective: The patient was seen and examined in his wheelchair. He reports being here because his noticed he has slurred speech about 1 week ago. He reports having been evaluated at [facility], but signed out against medical advice. Current Medications Generic Name Dose Route Start Last Admin Trade Name Freq PRN Reason Stop Dose Admin Amitriptyline HCl 50 mg 03/22/17 22:00 03/23/17 09:20 Elavil - PO 50 mg BID MERON Administration Apixaban 5 mg 03/23/17 14:47 Eliquis - PO BID MERON Aspirin 81 mg 03/22/17 15:45 03/23/17 09:33 Ecotrin - PO Not Given DAILY MERON Enalapril Maleate 10 mg 03/23/17 10:00 03/23/17 09:20 Vasotec - PO 10 mg DAILY MERON Administration Insulin Aspart 1 vial 03/22/17 16:30 03/23/17 11:13 Novolog Vial Sliding Scale - SQ 10 unit ACHS MERON Administration Protocol Insulin Detemir 30 units 03/22/17 22:00 03/22/17 21:26 Levemir Vial SQ 30 units HS MERON Administration Methadone HCl 160 mg/ 180 mg 03/23/17 08:45 03/23/17 08:40 Methadone HCl 20 mg PO 180 mg DAILY@0800 MERON Administration Non-Formulary Medication 25 mg 03/23/17 10:00 Naloxegol Oxalate [Movantik] PO DAILY MERON Oxycodone HCl 10 mg 03/22/17 16:59 03/23/17 09:24 Roxicodone - PO 10 mg Q8H PRN Administration PAIN Pantoprazole Sodium 20 mg 03/23/17 10:00 03/23/17 09:19 Protonix - PO 20 mg DAILY MERON Administration Pregabalin 150 mg 03/22/17 22:00 03/23/17 14:15 Lyrica - PO 150 mg TID MERON Administration Trazodone HCl 150 mg 03/22/17 22:00 03/22/17 21:26 Desyrel - PO 150 mg HS MERON Administration Objective: Vital Signs Period Temp Pulse Resp BP Sys/Rocha Pulse Ox Last 24 Hr 98.0 F-98.4 F 93-110 16-20 153-193/81-95 95-96 Physical Exam: General: NAD, A&Ox3 Lungs: CTA bilaterally Heart: RRR, S1S2 Abd: Soft, non-tender. Normoactive bowel sounds Ext: Left BKA. Right lower extremity with brace Neuro: Mild left facial droop. Upper extremities 5/5 muscle strength b/l. RLE 4/ 5 muscle strength. LLE 5/5 muscle strength CBCD WBC 9.2 K/mm3 (4.0-10.0) 03/23/17 06:20 RBC 4.11 M/mm3 (4.00-5.60) 03/23/17 06:20 Hgb 11.9 GM/dL (11.7-16.9) 03/23/17 06:20 Hct 35.7 % (35.4-49) 03/23/17 06:20 MCV 86.9 fl (80-96) 03/23/17 06:20 MCHC 33.2 g/dl (32.0-35.9) 03/23/17 06:20 RDW 13.8 % (11.9-15.9) 03/23/17 06:20 Plt Count 198 K/MM3 (134-434) 03/23/17 06:20 MPV 8.2 fl (7.5-11.1) 03/23/17 06:20 CMP Sodium 138 mmol/L (136-145) 03/23/17 06:20 Potassium 3.6 mmol/L (3.5-5.1) 03/23/17 06:20 Chloride 101 mmol/L (98-107) 03/23/17 06:20 Carbon Dioxide 30 mmol/L (21-32) 03/23/17 06:20 Anion Gap 7 (8-16) L 03/23/17 06:20 BUN 9 mg/dL (7-18) 03/23/17 06:20 Creatinine 0.9 mg/dL (0.7-1.3) 03/23/17 06:20 Creat Clearance w eGFR > 60 (>60) 03/23/17 06:20 Random Glucose 147 mg/dL (74-106) H D 03/23/17 06:20 Calcium 9.2 mg/dL (8.5-10.1) 03/23/17 06:20 Total Bilirubin 0.4 mg/dL (0.2-1.0) D 03/23/17 06:20 AST 45 U/L (15-37) H 03/23/17 06:20 ALT 40 U/L (12-78) 03/23/17 06:20 Alkaline Phosphatase 140 U/L (45-117) H 03/23/17 06:20 Total Protein 6.8 g/dl (6.4-8.2) 03/23/17 06:20 Albumin 3.3 g/dl (3.4-5.0) L 03/23/17 06:20 Assessment: This is a 57 year old male with PMHx of HTN, hyperlipidemia, DMII, DVT/PE (on Eliquis 2.5mg bid at home), left BKA, who presented to the ED after signing out AMA from [facility] for an acute CVA with slurred speech. Plan: 1) Neuro: Acute CVA - MRI with several small acute infarcts scattered within the right frontal lobe , anterior right temporal lobe, and right thalamus/posterior limb of the internal capsule. These are most likely embolic - Patient was on Eliquis 2.5 mg po bid for hx of DVT/PE. Called Wayne BARNES ([phone]) who outpatient pharmacy verified gave him the last Rx for Eliquis at this dosage. Spoke to MOLLY Angeles who states the patient reported he was on that medication, but is not aware at who initiated it or the patients double head machine operator's name. Asked the patient who prescribed him Eliquis and he states Wayne Paredes MD who also works in the same practice as MOLLY Angeles. At this time, given his age, weight, renal status, hx of prior DVT/PE, and now acute CVA , will increase Eliquis to 5mg po bid as stated for recommended dosing - Cannot start statin as the patient reportedly has allergy to simvastatin - ASA 81mg po daily (patient refused today) - ECHO reviewed - Carotid dopplers with no hemodynamically significant stenosis - Will need RUDDY as CVAs appear to be embolic - BP control - PT consult - Speech and swallow evaluation - Appreciate neurology consult - F/u cardiology consult (discussed case with Dr. Nathan) 2) Cardiology: Hx of DVT/PE - Patient was on Xarelto 20mg po daily in 2016 per records. Unknown when/who changed him to Eliquis 2.5mg po bid. Will increase dose as above HTN - Continue Enalapril - BP control, consider adding BB if remains hypertensive Hyperlipidemia - Patient has allergy to statin 3) Endocrine: DM - Hold metformin - Levemir 30u sq qhs - BGM ACHS - ISS ACHS 4) F/E/N: - Hypomagnesemia: replete - Diabetic diet - Monitor electrolyes 5) Prophylaxis: - On Eliquis - PT evaluation 6) Dispo: - Requires continued inpatient care CODE STATUS: FULL CODE Visit type - Emergency Visit Emergency Visit: Yes ED Registration Date: 03/23/17 Care time: The patient presented to the Emergency Department on the above date and was hospitalized for further evaluation of their emergent condition. - New Patient This patient is new to me today: No - Critical Care Critical Care patient: No
[2017-03-24] MEDS ORDERED: METHADONE HCL 40 MG DISPERSABLE TABLET ONE (10:13)
[2017-03-24] MEDS ORDERED: METHADONE HCL 10 MG TABLET ONE (10:13)
--- NOTE | 2017-03-24 10:13 | PN ---
Progress Note, Physician History of Present Illness: Slurred speech and left-sided weakness improving. Refused telemetry monitoring. - Current Medication List Current Medications: Active Medications Amitriptyline HCl (Elavil -) 50 mg PO BID [facility] Last Admin: 03/24/17 09:36 Dose: 50 mg Apixaban (Eliquis -) 5 mg PO BID [facility] Last Admin: 03/24/17 09:37 Dose: 5 mg Ezetimibe (Zetia -) 10 mg PO DAILY [facility] Last Admin: 03/24/17 09:36 Dose: 10 mg Enalapril Maleate (Vasotec -) 10 mg PO BID [facility] Last Admin: 03/24/17 09:36 Dose: 10 mg Insulin Aspart (Novolog Vial Sliding Scale -) 1 vial SQ 0745,1145,1715,2200 [facility] PRN Reason: Protocol Insulin Detemir (Levemir Vial) 30 units SQ [facility] Last Admin: 03/23/17 21:40 Dose: 30 units Methadone HCl 160 mg/ (Methadone HCl 20 mg) 180 mg PO DAILY@0800 [facility] Last Admin: 03/23/17 08:40 Dose: 180 mg Non-Formulary Medication (Naloxegol Oxalate [Movantik]) 25 mg PO DAILY [facility] Oxycodone HCl (Roxicodone -) 10 mg PO Q8H PRN PRN Reason: PAIN Last Admin: 03/23/17 21:46 Dose: 10 mg Pantoprazole Sodium (Protonix -) 20 mg PO DAILY [facility] Last Admin: 03/24/17 09:36 Dose: 20 mg Pregabalin (Lyrica -) 150 mg PO TID [facility] Last Admin: 03/24/17 05:59 Dose: 150 mg Trazodone HCl (Desyrel -) 150 mg PO [facility] Last Admin: 03/23/17 21:39 Dose: 150 mg - Objective Vital Signs: Vital Signs Temperature 98.9 F 03/24/17 06:00 Pulse Rate 91 H 03/24/17 06:00 Respiratory Rate 20 03/24/17 06:00 Blood Pressure 116/58 03/24/17 06:00 O2 Sat by Pulse Oximetry (%) 96 03/23/17 22:00 Constitutional: Yes: No Distress, Calm Neck: Yes: Supple Cardiovascular: Yes: Regular Rate and Rhythm Respiratory: Yes: Regular, Diminished Gastrointestinal: Yes: Normal Bowel Sounds, Soft Extremities: Yes: Amputation (Left BKA) Edema: No Labs: INR, PTT INR 1.11 (0.82-1.09) 03/22/17 13:00 - ....Imaging EKG: Report Reviewed (Tele: Refuses monitoring) Problem List - Problems (1) Cerebrovascular accident (CVA) Code(s): I63.9 - CEREBRAL INFARCTION, UNSPECIFIED Qualifiers: CVA mechanism: embolism (2) Dysarthria as late effect of cerebrovascular accident (CVA) Code(s): I69.322 - DYSARTHRIA FOLLOWING CEREBRAL INFARCTION (3) DVT (deep venous thrombosis) Code(s): I82.409 - ACUTE EMBOLISM AND THOMBOS UNSP DEEP VN UNSP LOWER EXTREMITY Qualifiers: Affected thrombotic vein of extremity: unspecified vein of extremity (4) Diabetes mellitus, insulin dependent (IDDM), uncontrolled Code(s): E10.65 - TYPE 1 DIABETES MELLITUS WITH HYPERGLYCEMIA Qualifiers: Diabetes mellitus complication status: with hyperglycemia Qualified Code(s): E10.65 - Type 1 diabetes mellitus with hyperglycemia (5) IDDM (insulin dependent diabetes mellitus) Code(s): E11.9 - TYPE 2 DIABETES MELLITUS WITHOUT COMPLICATIONS Z79.4 - MCFP (CURRENT) USE OF INSULIN (6) History of DVT (deep vein thrombosis) Code(s): Z86.718 - PERSONAL HISTORY OF OTHER VENOUS THROMBOSIS AND EMBOLISM (7) History of pulmonary embolus (PE) Code(s): Z86.711 - PERSONAL HISTORY OF PULMONARY EMBOLISM (8) Hypertension Code(s): I10 - ESSENTIAL (PRIMARY) HYPERTENSION Qualifiers: Hypertension type: essential hypertension Qualified Code(s): I10 - Essential (primary) hypertension (9) Neuropathy associated with endocrine disorder Code(s): E34.9 - ENDOCRINE DISORDER, UNSPECIFIED G63 - POLYNEUROPATHY IN DISEASES CLASSIFIED ELSEWHERE (10) Opioid dependence on agonist therapy Code(s): F11.20 - OPIOID DEPENDENCE, UNCOMPLICATED (11) Diabetic neuropathy Code(s): E11.40 - TYPE 2 DIABETES MELLITUS WITH DIABETIC NEUROPATHY, UNSP Qualifiers: Diabetes mellitus type: type 2 Diabetes mellitus complication detail: diabetic polyneuropathy Qualified Code(s): E11.42 - Type 2 diabetes mellitus with diabetic polyneuropathy (12) Presence of IVC filter Code(s): Z95.828 - PRESENCE OF OTHER VASCULAR IMPLANTS AND GRAFTS Assessment/Plan Echo: Normal LV size and function, tr-mild MR 1. Dysarthria and left-sided weakness referable to acute right embolic stroke 2. H/o DVT/PE s/p IVC filter on low dose Eliquis 3. PAD s/p left BKA, right foot amputation 4. HTN with improved BP control 5. Uncontrolled DM with neuropathy 6. Hyperlipidemia with Zocor reaction 7. Opiate dependence P:1. Declines telemetry monitoring to r/o PAF, continue Eliquis 5 bid 2. Optimize glycemic control, check TSH 3. Continue Vasotec 10 bid with uptitration as tolerated 4. Continue Zetia 10 qd given statin insensitivity 5. Not ideal RUDDY candidate 6. D/c planning as patient declining further treatment or therapies
[2017-03-24] MEDS: METHADONE 160 MG, METHADONE 20 MG PO SCH (10:18)
--- NOTE | 2017-03-24 10:52 | CONSULT ---
Admitting History and Physical - Primary Care Physician PCP: Domi Austin - Admission History of Present Illness: Per EMR: HISTORY OF PRESENT ILLNESS: 57 y.o. M with pmh of DVT/Bl PE, HTN, HLD, DM, neuropathy, and Left BKA/Right foot amputation presenting for slurred speech x 7 days. Patient went to [facility] yesterday and was told he had an acute stroke on CT. He left AMA after he was not given any of his home medications. Patient states his told him he was having intermittent slurred speech. Patient did not feel he was having any slurred speech, so he waited to come to the ED. Patient also endorses lip numbness. MRI several small acute right frontal/temporal/thalmus infarcts. 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 Cardiovascular: Yes: Deep Vein Thrombosis, HTN, Hyperlipdemia, Other Pulmonary: Yes: Pulmonary Embolus Psych: Yes: Depression Musculoskeletal: Yes: Other (amputations, foot gangrene) Endocrine: Yes: Diabetes Mellitus - Past Surgical History Past Surgical History: Yes: Amputation (Right 1st and 2nd toes) - Smoking History Smoking history: Current every day smoker Have you smoked in the past 12 months: Yes Aproximately how many cigarettes per day: 10 If you are a former smoker, when did you quit?: NOVEMBER 2014 - Alcohol/Substance Use Hx Alcohol Use: No History of Substance Use: reports: None - Social History ADL: Independent History of Recent Travel: No History - Admission Reason For Visit: CEREBRAL VASCULAR ACCIDENT - Diagnostics X-ray: Report Reviewed CT Scan: Report Reviewed MRI: Report Reviewed - General Mental Status: Alert and Oriented, Awake and Alert, Able to Follow Commands Attention: Distractible, Mild Impairment Ability to Follow Directions: Good Head/Neck Control: Good - Hearing Hearing: Normal Speech Evaluation - Communication Primary Language: MACEDONIAN Communication: Yes: Dysarthria Oral Expression Ability: Yes: Mild Impairment - Speech Production Dysarthria: Yes: Flaccid Able to Make Needs Known: Yes: Mildly Impaired Intelligibility: Yes: Mildly Impaired - Speech Characteristics Voice Loudness: Normal Voice Pitch: Yes: Normal Voice Phonatory-based Quality: Yes: Normal Speech Clarity: < 75% Nasal Resonance: Normal Rate of Speech: Too Slow - Language/Verbal Expression Able to Respond to Simple Queries: Yes: Mildly Impaired Able to Communicate Wants and Needs: Yes: Mildly Impaired Functional Communication Status: Yes: Mildly Impaired - Memory/Perception Visual Neglect: Yes: Left - Swallow Evaluation/Bedside Assessment Current Nutritional Intake: Regular, Thin Liquids Oral Secretions: Yes: WFL Dentition: Yes: Dental Appliance Upper, Dental Appliance Lower Facial Symmetry at Rest: Facial Droop Left (mild) Facial Symmetry on Retraction: Facial Droop Left (mild) Sensation: Reduced Left Pucker Lips: Droops Left (mild) Smile: Droops Left (mild) Lingual Movement Characteristics: Normal Laryngeal Elevation: WFL Laryngeal Movement: Able to Palpate Rate of Intake: WFL Bolus Size: WFL Labial Seal: WFL Chewing: WFL Oral Prep Time: WFL A-P Transit: WFL Pocketing: None Timing of Swallow: WFL Coughing/Throat Clear: No Change in Voice: No Recommendations - Speech Evaluation, Impression/Plan Impression: 57 yo with multiple small acute infarcts on MRI.Mild left facial, with mildly reduced rate of articulation and imprecision, with fair (+) intellgibilty.Head rotates to the right with left neglect and impaired ability to sustain eye contact.Distractible. Swallowing is functional. - Dysphagia Impressions/Plan Dysphagia Impressions: No Impairment *Silent aspiration: cannot be R/O at bedside Recommendations: Other (Monitor for congestion,fever, signs of dysphagia.) - Recommendations Diet Consistency: Regular (soft) Liquids: Thin Liquids
--- NOTE | 2017-03-24 11:33 | DS ---
Physical Exam: HOSPITAL COURSE: Date of Admission:03/23/17 Date of Discharge: 03/24/17 Minutes to complete discharge: 45 Discharge Summary Reason For Visit: CEREBRAL VASCULAR ACCIDENT Current Active Problems Cerebrovascular accident (CVA) (Acute) Dysarthria as late effect of cerebrovascular accident (CVA) (Acute) Presence of IVC filter (Acute) Hospital Course: Subjective: The patient was seen and examined in his wheelchair. He reports being here because his noticed he has slurred speech about 1 week ago. He reports having been evaluated at [facility], but signed out against medical advice. Physical Exam: General: NAD, A&Ox3 Lungs: CTA bilaterally Heart: RRR, S1S2 Abd: Soft, non-tender. Normoactive bowel sounds Ext: Left BKA. Right lower extremity with brace Neuro: Mild left facial droop. Upper extremities 5/5 muscle strength b/l. RLE 4/ 5 muscle strength. LLE 5/5 muscle strength Assessment: This is a 57 year old male with PMHx of HTN, hyperlipidemia, DMII, DVT/PE (on Eliquis 2.5mg bid at home), left BKA, who presented to the ED after signing out AMA from [facility] for an acute CVA with slurred speech. Plan: 1) Neuro: Acute CVA - MRI with several small acute infarcts scattered within the right frontal lobe , anterior right temporal lobe, and right thalamus/posterior limb of the internal capsule. These are most likely embolic - Increased Eliquis to 5mg po bid - Cannot start statin as the patient reportedly has allergy to simvastatin. Start Zetia - D/c ASA, patient on Eliquis - ECHO reviewed - Carotid dopplers with no hemodynamically significant stenosis - Patient refusing - BP control - PT consult reviewed - Speech and swallow evaluation reviewed - Appreciate neurology consult - Appreciate cardiology consult - Patient has refused cardiac monitoring 2) Cardiology: Hx of DVT/PE in 2005 - No documented hx of paroxysmal a.fib - Will need outpatient holter monitoring to evaluate further HTN - Continue Enalapril - Hyperlipidemia - Patient has allergy to statin 3) Endocrine: DM - Hold metformin - Levemir 30u sq qhs - BGM ACHS - ISS ACHS 4) F/E/N: - Diabetic diet - Monitor electrolyes 5) Prophylaxis: - On Eliquis Condition: Improved - Instructions Diet, Activity, Other Instructions: Please return to the ED with new, persistent, or worsening symptoms. Please follow-up with providers as indicated. Referrals: Raul Chaudhary DO [Staff Physician] - (Please follow-up with neurology within 1 week) John Nathan MD [Staff Physician] - (Please follow-up with Dr. Nathan within 1 week for outpatient holter monitor to evaluate for possible arrhythmias) Disposition: VNS/HOME HEALTH CARE - Home Medications Comprehensive Discharge Medication List: Ambulatory Orders Oxycodone HCl [Roxicodone -] 10 mg PO Q8H PRN 04/25/15 Amitriptyline HCl [Elavil -] 50 mg PO BID tablet 01/19/16 Pregabalin [Lyrica -] 150 mg PO TID #7 capsule MDD 3 01/19/16 Trazodone HCl [Desyrel -] 150 mg PO HS tablet 01/19/16 Insulin Glargine,Hum.rec.anlog [Lantus Solostar PEN -] 30 units SQ HS 03/22/17 Metformin HCl [Metformin HCl ER] 1,000 mg PO DAILY 03/22/17 Naloxegol Oxalate [Movantik] 25 mg PO DAILY 03/22/17 Omeprazole 20 mg PO DAILY 03/22/17 Methadone [Dolophine -] 180 mg PO DAILY 03/23/17 Apixaban [Eliquis -] 5 mg PO BID #60 tablet 03/24/17 Enalapril Maleate [Vasotec -] 10 mg PO BID #60 tablet 03/24/17 Ezetimibe [Zetia -] 10 mg PO DAILY #30 tablet 03/24/17 Problem List - Problems (1) Cerebrovascular accident (CVA) Code(s): I63.9 - CEREBRAL INFARCTION, UNSPECIFIED Qualifiers: CVA mechanism: embolism This patient is new to me today: No Emergency Visit: Yes ED Registration Date: 03/23/17 Care time: The patient presented to the Emergency Department on the above date and was hospitalized for further evaluation of their emergent condition. Critical Care patient: No - Discharge Referral Referred to [facility] Med [facility] Yes Physician Referral: Aubrey Tejada MD ([facility])
--- NOTE | 2017-03-24 12:35 | HOSP ---
Physical Examination Vital Signs: Vital Signs Temperature 97.1 F L 03/24/17 10:00 Pulse Rate 100 H 03/24/17 10:00 Respiratory Rate 17 03/24/17 10:00 Blood Pressure 134/80 03/24/17 10:00 O2 Sat by Pulse Oximetry (%) 96 03/23/17 22:00 Findings/Remarks: Discharge cancelled. Patients fingerstick was 429. RN states the patient went downstairs to the gift shop and had candy and cookies at the bedside. He is non-compliant. Went to assess the patient at 12:25pm and he was lethargic, falling asleep in his wheelchair. He was arousable, however fell back asleep immediately. Will do drug screen to rule out any substance abuse when he left the floor. Instructed RN to move him closer to nurses station.
[2017-03-24] MEDS ORDERED: NALOXONE HCL 0.4 MG/ML VIAL ONE (12:56)
[2017-03-24] MEDS ORDERED: NALOXONE HCL 0.4 MG/ML VIAL IVPUSH ONE (13:00)
[2017-03-24] MEDS ORDERED: INSULIN DETEMIR 100 UNITS/ML MDV SQ SCH (13:57)
--- NOTE | 2017-03-24 15:07 | PN ---
Progress Note (short form) - Note Progress Note: 57 y.o. M with pmh of DVT/Bl PE, HTN, HLD, DM, neuropathy, and Left BKA/Right foot amputation presenting for slurred speech x 7 days. Patient went to [facility] yesterday and was told he had an acute stroke on CT. He left AMA after he was not given any of his home medications. Patient states his told him he was having intermittent slurred speech. Patient did not feel he was having any slurred speech, so he waited to come to the ED. Patient also endorses lip numbness. Patient denies headache, blurry vision, weakness, numbness, chest pain , sob, N/V/D; he is using wheelchair and residual weakness of his legs ( from back surgery ?). FU : unresponsive state earlier in day and responded to narcan , ? 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 Cardio/Vascular: Yes: Deep Vein Thrombosis, HTN, Hyperlipdemia, Other Pulmonary: Yes: Pulmonary Embolus Psych: Yes: Depression Musculoskeletal: Yes: Other (amputations, foot gangrene) Endocrine: Yes: Diabetes Mellitus - Past Surgical History Past Surgical History: Yes: Amputation (Right 1st and 2nd toes) - Alcohol/Substance Use Hx Alcohol Use: No History of Substance Use: reports: None - Smoking History Smoking history: Current every day smoker Have you smoked in the past 12 months: Yes Aproximately how many cigarettes per day: 10 If you are a former smoker, when did you quit?: NOVEMBER 2014 - Social History ADL: Independent History of Recent Travel: No Home Medications - Allergies Allergies/Adverse Reactions: Allergies Allergy/AdvReac Type Severity Reaction Status Date / Time chlorpromazine HCl Allergy Intermediate Difficulty Verified 03/22/17 11:43 [From Thorazine] Breathing simvastatin Allergy Intermediate Itching Verified 03/22/17 11:43 - Home Medications Home Medications: Ambulatory Orders Oxycodone HCl [Roxicodone -] 10 mg PO Q8H PRN 04/25/15 Amitriptyline HCl [Elavil -] 50 mg PO BID tablet 01/19/16 Pregabalin [Lyrica -] 150 mg PO TID #7 capsule MDD 3 01/19/16 Trazodone HCl [Desyrel -] 150 mg PO HS tablet 01/19/16 Apixaban [Eliquis] 2.5 mg PO BID 03/22/17 Insulin Glargine,Hum.rec.anlog [Lantus Solostar PEN (NF)] 30 units SQ HS Metformin HCl [Metformin HCl ER] 1,000 mg PO DAILY 03/22/17 Naloxegol Oxalate [Movantik] 25 mg PO DAILY 03/22/17 Omeprazole 20 mg PO DAILY 03/22/17 Methadone [Dolophine -] 180 mg PO DAILY 03/23/17 Physical Exam-Neuro Vital Signs: Vital Signs Temperature 98.8 F 03/24/17 14:13 Pulse Rate 109 H 03/24/17 14:13 Respiratory Rate 20 03/24/17 14:13 Blood Pressure 140/118 03/24/17 14:13 O2 Sat by Pulse Oximetry (%) 96 03/23/17 22:00 Constitutional: Yes: Well Nourished, No Distress Labs: CBC, BMP 03/23/17 06:20 03/23/17 06:20 INR, PTT INR 1.11 (0.82-1.09) 03/22/17 13:00 - Neuro Exam Level Of Consciousness: Yes: Alert (awake and conversive, EOMi, No facial, mild dysarthria --though no aphasia, no focal weakness in UE, leg braces LE, gait not tested ) Problem List - Problems (1) 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 M with pmh of DVT/Bl PE, HTN, HLD, DM, neuropathy, and Left BKA/Right foot amputation and p/w subacute onset dysarthria, abnl outpt CT HD , already on AC for DVT new embolic stroke R MCA distribution likely from intracranial stenosis vs drug induced vasculaopathy ( cocaine) rather than cardioembolic cont AC for now full dose , statin DM uncontrolled --consider endrocrine /nutrition consult Dr Chaudhary [phone] Problem List - Problems (1) Dysarthria as late effect of cerebrovascular accident (CVA) Code(s): I69.322 - DYSARTHRIA FOLLOWING CEREBRAL INFARCTION
[2017-03-24 16:47] LABS: URINE APPEARANCE SLCLOUDY; URINE BILIRUBIN NEGATIVE (NEGATIVE); URINE BLOOD 1+ (NEGATIVE); URINE COLOR DKYELLOW; URINE GLUCOSE (UA) 2+ (NEGATIVE); URINE KETONE NEGATIVE (NEGATIVE); URINE NITRITE POSITIVE (NEGATIVE); URINE UROBILINOGEN NEGATIVE mg/dL (0.2-1.0)
[2017-03-24 16:49] LABS: URINE LEUK ESTERASE 1+ (NEGATIVE); URINE PROTEIN 2+ (NEGATIVE)
[2017-03-24 17:07] LABS: CALCIUM OXALATE CRYSTALS FEW /hpf (NONE SEEN); URINE HYALINE CAST 29 /lpf; URINE MUCUS RARE; URINE RBC 1 /hpf (0-3); URINE WBC 8 /hpf (3-5)
--- NOTE | 2017-03-24 17:33 | HOSP ---
Physical Examination Vital Signs: Vital Signs Temperature 98.8 F 03/24/17 14:13 Pulse Rate 109 H 03/24/17 14:13 Respiratory Rate 20 03/24/17 14:13 Blood Pressure 140/118 03/24/17 14:13 O2 Sat by Pulse Oximetry (%) 97 03/24/17 14:00 Findings/Remarks: Went to reevaluate the patient at 5pm. The patient is again difficult to arouse. When awake he is not saying any words. He has right lid lag. He is moving all extremities spontaneously. Stat CT ordered Still awaiting urine tox drug screen
[2017-03-24 21:34] LABS: URINE MARIJUANA THC NEGATIVE ng/ml (CUTOFF=50)
[2017-03-24] MEDS: traZODone HCL 50 MG TABLET (FP) PO SCH (22:18)
[2017-03-25] MEDS: traZODone HCL 50 MG TABLET (FP) PO SCH (00:30)
[2017-03-25] MEDS: AMITRIPTYLINE HCL 25 MG TABLET (FP) PO SCH ×2 (00:31→09:32)
[2017-03-25] MEDS: PREGABALIN 50 MG CAPSULE PO SCH ×2 (07:10→15:00)
[2017-03-25 07:35] LABS: BASOPHIL 0.6 % (0-2.0); EOSINOPHIL 2.1 % (0-4.5); MCH 29.2 pg (25.7-33.7); MCHC 33.5 g/dl (32.0-35.9); MEAN CELL VOLUME 87.2 fl (80-96); MEAN PLT VOLUME 8.9 fl (7.5-11.1); NEUTROPHILS 62.8 % (42.8-82.8); PLATELET COUNT 174 K/MM3 (134-434); RDW 14.1 % (11.9-15.9); WHITE BLOOD COUNT 6.3 K/mm3 (4.0-10.0)
[2017-03-25] MEDS ORDERED: INSULIN DETEMIR 100 UNITS/ML MDV SQ ONE ×2 (07:37→09:43)
[2017-03-25 08:27] LABS: ALBUMIN 3.2 g/dl (3.4-5.0); ALK PHOS 144 U/L (45-117); ANION GAP 7 (8-16); BILIRUBIN,TOTAL 0.5 mg/dL (0.2-1.0); CALCIUM 8.9 mg/dL (8.5-10.1); CO2 28 mmol/L (21-32); GLUCOSE,RANDOM 193 mg/dL (74-106); SGOT/AST 50 U/L (15-37); SGPT/ALT 44 U/L (12-78)
[2017-03-25] MEDS ORDERED: METHADONE HCL 40 MG DISPERSABLE TABLET ONE (09:17)
[2017-03-25] MEDS ORDERED: METHADONE HCL 10 MG TABLET ONE (09:17)
[2017-03-25] MEDS ORDERED: PT OWN MED DRAWER 7, Y5N ONE (09:18)
[2017-03-25] MEDS ORDERED: INSULIN (NOVOLOG) ASPART 100 UNITS/ML 10ML VIAL ONE (09:19)
--- NOTE | 2017-03-25 09:24 | PN ---
Physical Exam: SUBJECTIVE: Patient seen and examined OBJECTIVE: Vital Signs Period Temp Pulse Resp BP Sys/Rocah Pulse Ox Last 24 Hr 97.1 F-98.8 F 80-109 17-20 134-153/61-118 97-97 GENERAL: The patient is awake, alert, and fully oriented, in no acute distress. HEAD: Normal with no signs of trauma. EYES: PERRL, extraocular movements intact, sclera anicteric, conjunctiva clear. No ptosis. ENT: Ears normal, nares patent, oropharynx clear without exudates, moist mucous membranes. NECK: Trachea midline, full range of motion, supple. LUNGS: Breath sounds equal, clear to auscultation bilaterally, no wheezes, no crackles, no accessory muscle use. HEART: Regular rate and rhythm, S1, S2 without murmur, rub or gallop. ABDOMEN: Soft, nontender, nondistended, normoactive bowel sounds, no guarding, no rebound, no hepatosplenomegaly, no masses. EXTREMITIES: 2+ pulses, warm, well-perfused, no edema. NEUROLOGICAL: Cranial nerves II through XII grossly intact. Normal speech, gait not observed. PSYCH: Normal mood, normal affect. SKIN: Warm, dry, normal turgor, no rashes or lesions noted Laboratory Results - last 24 hr 03/24/17 03/24/17 03/24/17 09:48 11:31 14:50 WBC RBC Hgb Hct MCV MCH MCHC RDW Plt Count MPV Neutrophils % Lymphocytes % Monocytes % Eosinophils % Basophils % Sodium Potassium Chloride Carbon Dioxide Anion Gap BUN Creatinine Creat Clearance w eGFR POC Glucometer 290 428 Random Glucose Calcium Total Bilirubin AST ALT Alkaline Phosphatase Total Protein Albumin Urine Color Dkyellow Urine Appearance Slcloudy Urine pH 5.0 Ur Specific Norton 1.025 Urine Protein 2+ H Urine Glucose (UA) 2+ H Urine Ketones Negative Urine Blood 1+ H Urine Nitrite Positive Urine Bilirubin Negative Urine Urobilinogen Negative Urine RBC 1 Urine WBC 8 Calcium Oxalate Crystal Few Hyaline Casts 29 Urine Mucus Rare Opiates Screen Methadone Screen Barbiturate Screen Phencyclidine Screen Ur Amphetamines Screen MDMA (Ecstasy) Screen Benzodiazepines Screen Cocaine Screen U Marijuana (THC) Screen 03/24/17 03/24/17 03/24/17 14:50 16:47 22:01 WBC RBC Hgb Hct MCV MCH MCHC RDW Plt Count MPV Neutrophils % Lymphocytes % Monocytes % Eosinophils % Basophils % Sodium Potassium Chloride Carbon Dioxide Anion Gap BUN Creatinine Creat Clearance w eGFR POC Glucometer 207 88 Random Glucose Calcium Total Bilirubin AST ALT Alkaline Phosphatase Total Protein Albumin Urine Color Urine Appearance Urine pH Ur Specific Norton Urine Protein Urine Glucose (UA) Urine Ketones Urine Blood Urine Nitrite Urine Bilirubin Urine Urobilinogen Urine RBC Urine WBC Calcium Oxalate Crystal Hyaline Casts Urine Mucus Opiates Screen Positive Methadone Screen Positive Barbiturate Screen Negative Phencyclidine Screen Negative Ur Amphetamines Screen Negative MDMA (Ecstasy) Screen Positive Benzodiazepines Screen Negative Cocaine Screen Negative U Marijuana (THC) Screen Negative 03/25/17 03/25/17 06:30 06:30 WBC 6.3 D RBC 4.31 Hgb 12.6 Hct 37.6 MCV 87.2 MCH 29.2 MCHC 33.5 RDW 14.1 Plt Count 174 MPV 8.9 Neutrophils % 62.8 Lymphocytes % 28.2 D Monocytes % 6.3 Eosinophils % 2.1 Basophils % 0.6 Sodium 138 Potassium 3.9 Chloride 103 Carbon Dioxide 28 Anion Gap 7 L BUN 12 D Creatinine 1.0 Creat Clearance w eGFR > 60 POC Glucometer Random Glucose 193 H D Calcium 8.9 Total Bilirubin 0.5 D AST 50 H ALT 44 Alkaline Phosphatase 144 H Total Protein 7.0 Albumin 3.2 L Urine Color Urine Appearance Urine pH Ur Specific Norton Urine Protein Urine Glucose (UA) Urine Ketones Urine Blood Urine Nitrite Urine Bilirubin Urine Urobilinogen Urine RBC Urine WBC Calcium Oxalate Crystal Hyaline Casts Urine Mucus Opiates Screen Methadone Screen Barbiturate Screen Phencyclidine Screen Ur Amphetamines Screen MDMA (Ecstasy) Screen Benzodiazepines Screen Cocaine Screen U Marijuana (THC) Screen Active Medications Generic Name Dose Route Start Last Admin Trade Name Freq PRN Reason Stop Dose Admin Amitriptyline HCl 50 mg 03/22/17 22:00 03/25/17 00:31 Elavil - PO 50 mg BID MERON Administration Apixaban 5 mg 03/23/17 22:00 03/24/17 22:07 Eliquis - PO 5 mg BID MERON Administration Ezetimibe 10 mg 03/23/17 18:30 03/24/17 09:36 Zetia - PO 10 mg DAILY MERON Administration Enalapril Maleate 10 mg 03/23/17 22:00 03/24/17 22:07 Vasotec - PO 10 mg BID MERON Administration Insulin Aspart 1 vial 03/24/17 07:53 03/24/17 22:18 Novolog Vial Sliding Scale - SQ Not Given 0745,1145,1715,2200 [facility] Protocol Insulin Detemir 35 units 03/24/17 13:57 03/24/17 22:18 Levemir Vial SQ Not Given HS MERON Methadone HCl 160 mg/ 180 mg 03/23/17 08:45 03/24/17 10:18 Methadone HCl 20 mg PO 180 mg DAILY@0800 MERON Administration Non-Formulary Medication 25 mg 03/23/17 10:00 Naloxegol Oxalate [Movantik] PO DAILY MERON Pantoprazole Sodium 20 mg 03/23/17 10:00 03/24/17 09:36 Protonix - PO 20 mg DAILY MERON Administration Pregabalin 150 mg 03/22/17 22:00 03/25/17 07:10 Lyrica - PO Not Given TID MERON Trazodone HCl 150 mg 03/22/17 22:00 03/25/17 00:30 Desyrel - PO 150 mg HS MERON Administration CBC, BMP 03/25/17 06:30 03/25/17 06:30 ASSESSMENT/PLAN: This is a 57 year old man with a history of HTN, hyperlipidemia, type 2 DM, DVT , PE, IVC filter, PAD, left BKA, right foot amputation, depression who presented to the ER with slurred speech, left sided weakness and lip numbness x 7 days. # Possible recent CVA * One wek H/O slurred speech and little facial drop * MRI/MRA of brain * Start aspirin 325 mg in ED, continue 81 mg daily * Has allergy to Zocor * Neurology consult # Hypertension * Currently on no meds * medical record shows Has been on Vasotec, Labetalol, HCTZ in past * Start Vasotec 10 mg daily , increase dose if needed # Hyperlipdemia * Not on any statin due to Zocor allergy # Type 2 DM * blood glu 193 , 35 units of levimir * Continue Lantus * Hold metformin * Fingersticks with Novolog sliding scale #Diabetic peripheral neuropathy * Continue Lyrica, Elavil # History of DVT/PE * Increase Eliquis to 5 mg BID daily * Has IVC filter #Depression * Continue home meds Trazodone, Elavil # PAD, * history of left BKA, right foot amputation #FEN * F: On no fluids * E: Monitor * N: low sodium, diabetic diet * # Proph: * DVT: on ELiquis , IVC filter * GI : Protonix 20 mg Po daily * # Dispo * Admit tomed surg
[2017-03-25] MEDS: METHADONE 160 MG, METHADONE 20 MG PO SCH (09:28)
[2017-03-25] MEDS: APIXABAN 5 MG TABLET PO SCH (09:29)
[2017-03-25] MEDS: PANTOPRAZOLE 20 MG TABLET (FP) PO SCH (09:29)
[2017-03-25] MEDS: ENALAPRIL MALEATE 10 MG TABLET (FP) PO SCH (09:29)
[2017-03-25] MEDS: EZETIMIBE 10 MG TABLET (FP) PO SCH (09:29)
[2017-03-25] MEDS: INSULIN SLIDING SCALE (NOVOLOG) 1 VIAL SQ SCH ×2 (09:32→12:16)
--- NOTE | 2017-03-25 11:21 | PN ---
Progress Note, [employer] - Note Progress Note: Period of lethargy last night. Stat CT unchanged. Tox drug screen noted-from pre -admission? TIA? Selected Entries 03/22/17 03/23/17 03/23/17 18:00 06:00 09:39 Breakfast 75% Lunch Supper 100% Temperature 98.0 F 03/23/17 03/23/17 03/23/17 10:00 14:17 22:00 Breakfast 75% Lunch 100% Supper Temperature 98.2 F 98.2 F 98.7 F 03/24/17 03/24/17 03/24/17 02:00 06:00 10:00 Breakfast Lunch Supper Temperature 98.5 F 98.9 F 97.1 F L 03/24/17 03/24/17 03/24/17 14:13 18:00 22:00 Breakfast Lunch Supper Temperature 98.8 F 98.8 F 97.6 F 03/25/17 03/25/17 02:00 10:09 Breakfast 75% Lunch Supper Temperature 97.9 F Laboratory Tests 03/25/17 06:30 WBC 6.3 D TOday pt is verbal, less dysarthric,more precise today than yesterday. Tolerating diet without signs of aspiration or difficulty.
--- NOTE | 2017-03-25 11:50 | PN ---
Progress Note, Physician History of Present Illness: Obtunded yesterday after unauthorized trip off floor, recovered mental status post Narcan, urine tox + opiates. HCT without changes, dysarthria improved. - Current Medication List Current Medications: Active Medications Amitriptyline HCl (Elavil -) 50 mg PO BID [facility] Last Admin: 03/25/17 09:32 Dose: 50 mg Apixaban (Eliquis -) 5 mg PO BID [facility] Last Admin: 03/25/17 09:29 Dose: 5 mg Ezetimibe (Zetia -) 10 mg PO DAILY [facility] Last Admin: 03/25/17 09:29 Dose: 10 mg Enalapril Maleate (Vasotec -) 10 mg PO BID [facility] Last Admin: 03/25/17 09:29 Dose: 10 mg Insulin Aspart (Novolog Vial Sliding Scale -) 1 vial SQ 0745,1145,1715,2200 [facility] PRN Reason: Protocol Last Admin: 03/25/17 09:32 Dose: 8 unit Insulin Detemir (Levemir Vial) 35 units SQ [facility] Last Admin: 03/24/17 22:18 Dose: Not Given Methadone HCl 160 mg/ (Methadone HCl 20 mg) 180 mg PO DAILY@0800 [facility] Last Admin: 03/25/17 09:28 Dose: 180 mg Non-Formulary Medication (Naloxegol Oxalate [Movantik]) 25 mg PO DAILY [facility] Pantoprazole Sodium (Protonix -) 20 mg PO DAILY [facility] Last Admin: 03/25/17 09:29 Dose: 20 mg Pregabalin (Lyrica -) 150 mg PO TID [facility] Last Admin: 03/25/17 07:10 Dose: Not Given Trazodone HCl (Desyrel -) 150 mg PO [facility] Last Admin: 03/25/17 00:30 Dose: 150 mg - Objective Vital Signs: Vital Signs Temperature 97.9 F 03/25/17 02:00 Pulse Rate 90 03/25/17 02:00 Respiratory Rate 20 03/25/17 02:00 Blood Pressure 142/61 03/25/17 02:00 O2 Sat by Pulse Oximetry (%) 97 03/24/17 22:00 Constitutional: Yes: No Distress, Calm Neck: Yes: Supple Cardiovascular: Yes: Regular Rate and Rhythm Respiratory: Yes: Regular, Diminished Gastrointestinal: Yes: Normal Bowel Sounds, Soft Extremities: Yes: Amputation (Left BKA) Edema: No Labs: CBC, BMP 03/25/17 06:30 03/25/17 06:30 INR, PTT INR 1.11 (0.82-1.09) 03/22/17 13:00 - ....Imaging EKG: Report Reviewed (Tele: Refused monitoring) Problem List - Problems (1) Cerebrovascular accident (CVA) Code(s): I63.9 - CEREBRAL INFARCTION, UNSPECIFIED Qualifiers: CVA mechanism: embolism (2) Dysarthria as late effect of cerebrovascular accident (CVA) Code(s): I69.322 - DYSARTHRIA FOLLOWING CEREBRAL INFARCTION (3) DVT (deep venous thrombosis) Code(s): I82.409 - ACUTE EMBOLISM AND THOMBOS UNSP DEEP VN UNSP LOWER EXTREMITY Qualifiers: Affected thrombotic vein of extremity: unspecified vein of extremity (4) Diabetes mellitus, insulin dependent (IDDM), uncontrolled Code(s): E10.65 - TYPE 1 DIABETES MELLITUS WITH HYPERGLYCEMIA Qualifiers: Diabetes mellitus complication status: with hyperglycemia Qualified Code(s): E10.65 - Type 1 diabetes mellitus with hyperglycemia (5) IDDM (insulin dependent diabetes mellitus) Code(s): E11.9 - TYPE 2 DIABETES MELLITUS WITHOUT COMPLICATIONS Z79.4 - USP (CURRENT) USE OF INSULIN (6) History of DVT (deep vein thrombosis) Code(s): Z86.718 - PERSONAL HISTORY OF OTHER VENOUS THROMBOSIS AND EMBOLISM (7) History of pulmonary embolus (PE) Code(s): Z86.711 - PERSONAL HISTORY OF PULMONARY EMBOLISM (8) Hypertension Code(s): I10 - ESSENTIAL (PRIMARY) HYPERTENSION Qualifiers: Hypertension type: essential hypertension Qualified Code(s): I10 - Essential (primary) hypertension (9) Neuropathy associated with endocrine disorder Code(s): E34.9 - ENDOCRINE DISORDER, UNSPECIFIED G63 - POLYNEUROPATHY IN DISEASES CLASSIFIED ELSEWHERE (10) Opioid dependence on agonist therapy Code(s): F11.20 - OPIOID DEPENDENCE, UNCOMPLICATED (11) Diabetic neuropathy Code(s): E11.40 - TYPE 2 DIABETES MELLITUS WITH DIABETIC NEUROPATHY, UNSP Qualifiers: Diabetes mellitus type: type 2 Diabetes mellitus complication detail: diabetic polyneuropathy Qualified Code(s): E11.42 - Type 2 diabetes mellitus with diabetic polyneuropathy (12) Presence of IVC filter Code(s): Z95.828 - PRESENCE OF OTHER VASCULAR IMPLANTS AND GRAFTS Assessment/Plan Echo: Normal LV size and function, tr-mild MR 1. Dysarthria and left-sided weakness referable to acute right embolic stroke 2. H/o DVT/PE s/p IVC filter on low dose Eliquis 3. PAD s/p left BKA, right foot amputation 4. HTN with improved BP control 5. Uncontrolled DM with neuropathy 6. Hyperlipidemia with Zocor reaction 7. Opiate dependence P:1. Declines telemetry monitoring to r/o PAF, continue Eliquis 5 bid 2. Optimize glycemic control, check TSH 3. Continue Vasotec 10 bid with uptitration as tolerated 4. Continue Zetia 10 qd given statin insensitivity 5. Not ideal RUDDY candidate 6. D/c planning as patient declining further treatment or therapies and is noncompliant
[2017-03-25 14:49] VITALS: BP 151/89; PULSE 89; TEMP 98.7
--- NOTE | 2017-03-25 16:05 | PN ---
Teaching Attending Note Name of Resident: Kennedy Campbell ATTENDING PHYSICIAN STATEMENT I saw and evaluated the patient. I reviewed the resident's note and discussed the case with the resident. I agree with the resident's findings and plan as documented. SUBJECTIVE: OBJECTIVE: Vital Signs Period Temp Pulse Resp BP Sys/Rocha Pulse Ox Last 24 Hr 97.6 F-98.8 F 80-94 20-20 142-164/61-99 97-97 HEART: S1S2, RRR LUNGS: Clear ABDOMEN: Obese, soft, non-tender, non-distended, normal BS EXTREMITIES: s/p left BKA, s/p right foot amputation, chronic changes RLE Current Medications Generic Name Dose Route Start Last Admin Trade Name Freq PRN Reason Stop Dose Admin Amitriptyline HCl 50 mg 03/22/17 22:00 03/25/17 09:32 Elavil - PO 50 mg BID MERON Administration Apixaban 5 mg 03/23/17 22:00 03/25/17 09:29 Eliquis - PO 5 mg BID MERON Administration Ezetimibe 10 mg 03/23/17 18:30 03/25/17 09:29 Zetia - PO 10 mg DAILY MERON Administration Enalapril Maleate 10 mg 03/23/17 22:00 03/25/17 09:29 Vasotec - PO 10 mg BID MERON Administration Insulin Aspart 1 vial 03/24/17 07:53 03/25/17 12:16 Novolog Vial Sliding Scale - SQ 8 unit 0745,1145,1715,2200 MERON Administration Protocol Insulin Detemir 35 units 03/24/17 13:57 03/24/17 22:18 Levemir Vial SQ Not Given HS MERON Methadone HCl 160 mg/ 180 mg 03/23/17 08:45 03/25/17 09:28 Methadone HCl 20 mg PO 180 mg DAILY@0800 MERON Administration Non-Formulary Medication 25 mg 03/23/17 10:00 Naloxegol Oxalate [Movantik] PO DAILY MERON Pantoprazole Sodium 20 mg 03/23/17 10:00 03/25/17 09:29 Protonix - PO 20 mg DAILY MERON Administration Pregabalin 150 mg 03/22/17 22:00 03/25/17 15:00 Lyrica - PO 150 mg TID MERON Administration Trazodone HCl 150 mg 03/22/17 22:00 03/25/17 00:30 Desyrel - PO 150 mg HS MERON Administration ASSESSMENT AND PLAN: This is a 57 year old man with a history of HTN, hyperlipidemia, type 2 DM, DVT , PE, IVC filter, PAD, left BKA, right foot amputation, depression who presented to the ER with slurred speech, left sided weakness and lip numbness x 7 days. 1. Acute ischemic right MCA CVA - Symptoms resolved - Possibly embolic secondary to PAF (no evidence so far), possibly cocaine induced - Continue Eliquis, Zetia - Not on statin secondary to allergy 2. Hypertension - Continue Vasotec 3. Hyperlipidemia - Continue Zetia - Not on statin secondary to allergy 4. Type 2 DM - Continue Levemir, Novolog sliding scale - Resume Metformin at discharge 5. Diabetic peripheral neuropathy - Continue Lyrica, Elavil 6. History of DVT/PE - Continue Eliquis - Has IVC filter 7. Depression - Continue Trazodone, Elavil 8. PAD, history of left BKA, right foot amputation 9. Acute toxic encephalopathy secondary to substance abuse - Given Narcan yesterday - Resolved 10. Plan for discharge today
--- NOTE | 2017-03-25 17:34 | PN ---
Progress Note, Physician Chief Complaint: left sided weakness (mainly face) History of Present Illness: Patient presented to [facility] with about a week of left facial weekness. He signed out AMA before neurologic evaluation, but later presented to [facility]. During this admission left floor unauthorized and came back sedated with improvement after narcan administration. Urine toxicology reveals MDMA. - Current Medication List Current Medications: Active Medications Amitriptyline HCl (Elavil -) 50 mg PO BID [facility] Last Admin: 03/25/17 09:32 Dose: 50 mg Apixaban (Eliquis -) 5 mg PO BID [facility] Last Admin: 03/25/17 09:29 Dose: 5 mg Ezetimibe (Zetia -) 10 mg PO DAILY [facility] Last Admin: 03/25/17 09:29 Dose: 10 mg Enalapril Maleate (Vasotec -) 10 mg PO BID [facility] Last Admin: 03/25/17 09:29 Dose: 10 mg Insulin Aspart (Novolog Vial Sliding Scale -) 1 vial SQ 0745,1145,1715,2200 [facility] PRN Reason: Protocol Last Admin: 03/25/17 12:16 Dose: 8 unit Insulin Detemir (Levemir Vial) 35 units SQ [facility] Last Admin: 03/24/17 22:18 Dose: Not Given Methadone HCl 160 mg/ (Methadone HCl 20 mg) 180 mg PO DAILY@0800 [facility] Last Admin: 03/25/17 09:28 Dose: 180 mg Non-Formulary Medication (Naloxegol Oxalate [Movantik]) 25 mg PO DAILY [facility] Pantoprazole Sodium (Protonix -) 20 mg PO DAILY [facility] Last Admin: 03/25/17 09:29 Dose: 20 mg Pregabalin (Lyrica -) 150 mg PO TID [facility] Last Admin: 03/25/17 15:00 Dose: 150 mg Trazodone HCl (Desyrel -) 150 mg PO HS [facility] Last Admin: 03/25/17 00:30 Dose: 150 mg - Objective Vital Signs: Vital Signs Temperature 98.7 F 03/25/17 14:42 Pulse Rate 89 03/25/17 14:42 Respiratory Rate 20 03/25/17 14:42 Blood Pressure 151/89 03/25/17 14:42 O2 Sat by Pulse Oximetry (%) 97 03/25/17 14:00 Neurological: Yes: Alert, Oriented, Other (mild dysarthria, full strength in upper extremities.) Labs: CBC, BMP 03/25/17 06:30 03/25/17 06:30 INR, PTT INR 1.11 (0.82-1.09) 03/22/17 13:00 - ....Imaging Cat Scan: Report Reviewed, Image Reviewed MRI: Report Reviewed (R MCA stroke), Image Reviewed Problem List - Problems (1) Cerebrovascular accident (CVA) Code(s): I63.9 - CEREBRAL INFARCTION, UNSPECIFIED Qualifiers: CVA mechanism: embolism Assessment/Plan S/P stroke in the setting of MDMA abuse. No evidence of cocaine in urine, but this tends to disappear after a few days anyway. MDMA can produce stroke in much the same manner as cocaine, so in any case, his ongoing drug abuse and dependence continues to put him at risk. Recommend psych/substance abuse consultation to address this problem.
--- NOTE | 2017-03-26 11:08 | DS ---
Physical Exam: SUBJECTIVE: Patient seen and examined at bedside. he is AAOx3 . he is more awake today, denies any fever, chills, N/V/D/C. No chest pain,sob, palpitation was reported. he is asking to go home. OBJECTIVE: Vital Signs Period Temp Pulse Resp BP Sys/Rocha Pulse Ox Last 24 Hr 98.7 F 89 20-20 151/89 97 PHYSICAL EXAM GENERAL: Awake, alert, and fully oriented, in no acute distress. HEAD: Normal with no signs of trauma. EYES: sclera anicteric, conjunctiva clear. EARS, dry mucous membranes. NECK: Normal range of motion, supple without lymphadenopathy, JVD, or masses. LUNGS: Breath sounds equal, clear to auscultation bilaterally. No wheezes, and no crackles. No accessory muscle use. HEART: Regular rate and rhythm, normal S1 and S2 without murmur, rub or gallop. ABDOMEN: Soft, nontender, not distended, normoactive bowel sounds, no guarding, no rebound, no masses. MUSCULOSKELETAL: Normal range of motion at all joints. No bony deformities or tenderness. UPPER EXTREMITIES: 2+ pulses, warm, well-perfused. No cyanosis. No clubbing. No peripheral edema. LOWER EXTREMITIES: Left BKA/Right foot amputation NEUROLOGICAL: Little slurry speech. smile assymetry left angular drop PSYCHIATRIC: Cooperative. Good eye contact. Appropriate mood and affect. SKIN: Warm, dry, no rashes or lesions noted, normal capillary refill. LABS Laboratory Results - last 24 hr 03/25/17 11:12 POC Glucometer 321 HOSPITAL COURSE: Date of Admission:03/23/17 Date of Discharge: 03/26/17 Mr Brumfield is a 57 year old man with a history of HTN, hyperlipidemia, type 2 DM complicated by neuropathy, DVT/PE on Eliquis with IVC filter, PAD s/p left BKA & right foot amputation, depression who presented to the ER with slurred speech, left sided weakness and lip numbness after cocaine abuse with onset of symptoms 7 days prior to arrival, found to have partial facial droop as only residual symptom at time of presentation. MRI brain showed acute embolic ischemic right MCA CVA, believed to be vasospasm induced from cocaine, NMDA or secondary to acute embolism though patient had no evidence of Afib (refused Holter monitoring). He was continued on Zetia (statin allergy), had his Eliquis dose increased from 2.5-->5mg bid. There was concern for narcotic abuse while in house with intermittent confusion requiring narcan administration and +UDS for opiates, methadone, ecstasy. Detox service consulted for assistance with substance abuse. Follow-up with PCP, cardiology and neurology and plan for D/C home with nurse visits. Minutes to complete discharge: 30 Discharge Summary Reason For Visit: CEREBRAL VASCULAR ACCIDENT Current Active Problems Cerebrovascular accident (CVA) (Acute) Dysarthria as late effect of cerebrovascular accident (CVA) (Acute) Presence of IVC filter (Acute) Condition: Stable - Instructions Diet, Activity, Other Instructions: Please return to the ED with new, persistent, or worsening symptoms. Please follow-up with providers as indicated. Your eliquis has been increased to 5 mg to take twice a day. This medication has been sent to your pharmacy. Follow up with your primary care doctor within 1 week. You will have visiting nurse service set up for you to come to your house. For your blood pressure, vasotec has been sent to your pharmacy. You have also been prescribed zetia to your pharmacy. Follow up with Dr. Chaudhary, a neurologist, in 1 week. Follow up with Dr. Nathan, a varitype operator, in 1 week. Your imaging studies are consistent with the stroke that was found at [facility]. Referrals: Raul Chaudhary DO [Staff Physician] - (Please follow-up with neurology within 1 week) John Nathan MD [Staff Physician] - (Please follow-up with Dr. Nathan within 1 week for outpatient holter monitor to evaluate for possible arrhythmias) Disposition: VNS/HOME HEALTH CARE - Home Medications Comprehensive Discharge Medication List: Ambulatory Orders Oxycodone HCl [Roxicodone -] 10 mg PO Q8H PRN 04/25/15 Amitriptyline HCl [Elavil -] 50 mg PO BID tablet 01/19/16 Pregabalin [Lyrica -] 150 mg PO TID #7 capsule MDD 3 01/19/16 Trazodone HCl [Desyrel -] 150 mg PO HS tablet 01/19/16 Insulin Glargine,Hum.rec.anlog [Lantus Solostar PEN -] 30 units SQ HS 03/22/17 Metformin HCl [Metformin HCl ER] 1,000 mg PO DAILY 03/22/17 Naloxegol Oxalate [Movantik] 25 mg PO DAILY 03/22/17 Omeprazole 20 mg PO DAILY 03/22/17 Methadone [Dolophine -] 180 mg PO DAILY 03/23/17 Apixaban [Eliquis -] 5 mg PO BID #60 tablet 03/24/17 Enalapril Maleate [Vasotec -] 10 mg PO BID #60 tablet 03/24/17 Ezetimibe [Zetia -] 10 mg PO DAILY #30 tablet 03/24/17 This patient is new to me today: Yes Date on this admission: 03/26/17 Emergency Visit: Yes ED Registration Date: 03/23/17 Care time: The patient presented to the Emergency Department on the above date and was hospitalized for further evaluation of their emergent condition. Critical Care patient: No - Discharge Referral Referred to [facility] Yes Physician Referral: Aubrey Tejada MD ([facility])
== END 2017-03-25 17:45 | disposition home health service (06) | DRG 64 ==
LOC: JER 10:22 → UNDOADMOB 13:48 → INTOOBSV 13:48 → JERBED 13:48 → J4S 16:18 → JERBED 16:18 → J4S 16:22 → JERBED 16:22 → OBSVTOIN 03-23 16:39
PROVIDERS: ADMIT Internal Medicine; ATTEND Internal Medicine
DX: I63.9 Cerebral infarction, unspecified (principal); G92 Toxic encephalopathy; G81.94 Hemiplegia, unspecified affecting left nondominant side; F11.20 Opioid dependence, uncomplicated; R47.01 Aphasia; R29.810 Facial weakness; R47.81 Slurred speech; R13.19 Other dysphagia; E11.42 Type 2 diabetes mellitus with diabetic polyneuropathy; Z99.3 Dependence on wheelchair; Z79.84 Long term (current) use of oral hypoglycemic drugs; Z86.718 Personal history of other venous thrombosis and embolism; Z86.711 Personal history of pulmonary embolism; I10 Essential (primary) hypertension; E78.5 Hyperlipidemia, unspecified; Z89.512 Acquired absence of left leg below knee; Z89.431 Acquired absence of right foot; F17.210 Nicotine dependence, cigarettes, uncomplicated; Z95.5 Presence of coronary angioplasty implant and graft; Z79.01 Long term (current) use of anticoagulants; F32.9 Major depressive disorder, single episode, unspecified; E83.42 Hypomagnesemia; E11.65 Type 2 diabetes mellitus with hyperglycemia; Z91.14 Patient's other noncompliance with medication regimen; I73.9 Peripheral vascular disease, unspecified
CPT/HCPCS: 36415; 70450-TC; 70544-TC; 70551-TC; 71010-TC; 80053; 80061; 80307; 81003; 81015; 83036; 83721; 83735; 84100; 85025; 85610; 85730; 93005; 93010; 93306-TC; 93880-TC; 99284-25; G0378; G0480

== ENCOUNTER 2017-04-14 09:27 | Day surgery (SDC) | payer BC, OTHER ==
[2017-04-11 13:29] VITALS: BMI 32.5
[2017-04-14] MEDS ORDERED: LIDOCAINE VISCOUS 2% ORAL/TOP 20 ML UNIT-DOSE CUP MM ONE (10:52)
[2017-04-14 11:13] VITALS: TEMP 98.5
[2017-04-14 12:13] VITALS: BP 152/70; PULSE 82
== END 2017-04-14 12:13 | disposition home or self-care (01) ==
LOC: JASU-ENDO 09:27
PROVIDERS: ATTEND Internal Medicine Cardiovascular Disease
PROC: B246ZZ4 Ultrasonography of Right and Left Heart, Transesophageal (ICD-10-PCS; principal; 2017-04-14 10:00)
DX: I63.9 Cerebral infarction, unspecified (principal)
CPT/HCPCS: 93312; 93325

== ENCOUNTER 2017-09-07 13:57 | Day surgery (SDC) | payer BC, OTHER ==
[2017-09-06 14:18] VITALS: BMI 32.6
[2017-09-07 16:02] VITALS: TEMP 97.5
[2017-09-07 16:53] VITALS: BP 130/64; PULSE 78
== END 2017-09-07 16:54 | disposition home or self-care (01) ==
LOC: JASU-ENDO 13:57
PROVIDERS: ATTEND Internal Medicine Gastroenterology
PROC: 0DJD8ZZ Inspection of Lower Intestinal Tract, Via Natural or Artificial Opening Endoscopic (ICD-10-PCS; principal; 2017-09-07 15:00)
DX: Z12.11 Encounter for screening for malignant neoplasm of colon (principal); Z53.8 Procedure and treatment not carried out for other reasons; K56.41 Fecal impaction; I10 Essential (primary) hypertension; E11.9 Type 2 diabetes mellitus without complications; Z79.84 Long term (current) use of oral hypoglycemic drugs; I25.10 Atherosclerotic heart disease of native coronary artery without angina pectoris; Z95.5 Presence of coronary angioplasty implant and graft; Z72.0 Tobacco use
CPT/HCPCS: 82962

== ENCOUNTER 2018-10-07 15:43 | Emergency (ER) | payer BC, OTHER ==
--- NOTE | 2018-10-07 15:47 | PDOC ---
History of Present Illness - General Chief Complaint: Altered Mental Status Stated Complaint: POSSIBLE OVERDOSE Time Seen by Provider: 10/07/18 15:46 - History of Present Illness Initial Comments: 10/07/18 16:20 The patient is a 58 year old male with a history of HTN, HLD, DM, Cardiac Stents , CVA, TIA, Left BKA, Right foot amputation, Heroin abuse who presents for evaluation of altered mental status. Per EMS the patient's sister found him down next to his wheelchair very lethargic prompting her to call EMS. The patient takes 90mg of methadone daily and took his methadone today. He also snorted heroin 1 day ago as well. Per EMS, the patient received 1mg of intranasal narcan with minimal improvement in his symptoms. On presentation, the patient is not cooperative with history however occasionally responds to voiced. ROS unobtainable due to altered mental status. Past History - Past Medical History Allergies/Adverse Reactions: Allergies Allergy/AdvReac Type Severity Reaction Status Date / Time chlorpromazine HCl Allergy Intermediate Difficulty Verified 10/07/18 18:03 [From Thorazine] Breathing simvastatin Allergy Intermediate Itching Verified 10/07/18 18:03 Home Medications: Ambulatory Orders Unobtainable 10/07/18 Anemia: No Asthma: No Cancer: Yes (poor circulation) Cardiac Disorders: Yes (CARDIAC STENTS , AFIB) CVA: Yes (MULTIPLE TIAs, LEFT SIDED WEAKNESS/FACIAL DROOP) COPD: No CHF: No Dementia: No Diabetes: Yes (neuropathy) GI Disorders: No Disorders: No HTN: Yes Hypercholesterolemia: Yes Liver Disease: No Seizures: No Thyroid Disease: No - Surgical History Abdominal Surgery: No Appendectomy: No Cardiac Surgery: Yes (STENT) Cholecystectomy: No Lung Surgery: No Neurologic Surgery: No Orthopedic Surgery: No - Immunization History Immunization Up to Date: Yes - Suicide/Smoking/Psychosocial Hx Smoking History: Current every day smoker Have you smoked in the past 12 months: Yes Number of Cigarettes Smoked Daily: 3 If you are a former smoker, when did you quit?: NOVEMBER 2014 Cigars Per Day: 0 'Breaking Loose' booklet given: 04/11/17 Hx Alcohol Use: No Drug/Substance Use Hx: No Substance Use Type: Opiates Hx Substance Use Treatment: Yes Review of Systems - Review of Systems Able to Perform ROS?: No (Altered Mental Status) *Physical Exam - Physical Exam Comments: 10/07/18 16:26 General Appearance: Nourished. No Apparent Distress HEENT: EOMI, MARIANA. No Pharyngeal Erythema, Tonsillar Exudate, Tonsillar Erythema Neck: No Cervical Lymphadenopathy Respiratory/Chest: Lungs Clear, Normal Breath Sounds. No Crackles, Rales, Rhonchi, Wheezing Cardiovascular: Regular Rhythm, Regular Rate. No Murmur, Gallops, Rubs Gastrointestinal/Abdominal: Normal Bowel Sounds, Soft. No Guarding, Rebound, Tenderness Musculoskeletal: No CVA Tenderness Extremity: BKA of the left lower extremity. Foot amputation of the right lower extremity. Normal Capillary Refill Integumentary: Normal Color, Dry, Warm Neurologic: Oriented x2, Lethargic,Moving all extremities. ED Treatment Course - LABORATORY CBC & Chemistry Diagram: 10/07/18 16:05 10/07/18 16:05 Medical Decision Making - Medical Decision Making 10/07/18 16:28 The patient is a 58 year old male with a history of HTN, HLD, DM, Cardiac Stents , CVA, TIA, Left BKA, Right foot amputation, Heroin abuse who presents for evaluation of altered mental status. Differential includes but is not limited to: CVA, Intracranial process, Intox, Infectious, Metabolic Derangement. Given the patient's history and physical exam, we will obtain a cbc, cmp, alcohol level, urine tox, head CT, lactate, to evaluate further. We will continue to closely monitor and reassess while here in the ED. 10/07/18 21:55 CBC is unremarkable. CMP demonstrates a creatinine of 1.4. Lactate was 4.1 and repeat lactate after fluid hydration was 2.1. Head CT is unchanged from priors with no acute findings as preliminarily read by our national recruiter radiologist. The patient's symptoms are likely due to opioid use and heroin use. The patient is alert and oriented x3 without slurred speech on exam. We are comfortable discharging the patient home with primary care provider follow up. We discussed the results, plan, and return precautions with the patient who voiced understanding and is agreeable with the plan. *DC/Admit/Observation/Transfer Diagnosis at time of Disposition: Opioid dependence on agonist therapy - Discharge Dispostion Disposition: HOME Condition at time of disposition: Stable - Referrals - Patient Instructions Printed Discharge Instructions: DI for Opioid Addiction Additional Instructions: 1) Please follow-up with your primary care doctor in the next 2-3 days. Please call tomorrow to schedule a follow up appointment. If you cannot follow up with your doctor within 1 week please return to the Emergency Department for any urgent issues. 2) Your laboratory / imaging results were normal here in the ER. 3) If you have any worsening of symptoms or any other concerns please return to the ER immediately. Return if worsening symptoms including fevers, headache, vomiting, visual or hearing disturbances, abdominal pain, chest pain, shortness of breath, syncope, dehydration, inability to take things by mouth/vomiting, altered mental status, or worsening concerning symptoms. 4) Please continue taking your home medications as directed. Side effects may include upset stomach, abdominal pain, vomiting, or diarrhea. Do not drink alcohol with your medications. - Post Discharge Activity
[2018-10-07 15:57] VITALS: BMI 23.6
--- NOTE | 2018-10-07 16:19 | PDOC ---
Attending Attestation - Resident Resident Name: Tate Daniel - ED Attending Attestation I have performed the following: I have examined & evaluated the patient, The case was reviewed & discussed with the resident, I agree w/resident's findings & plan, Exceptions are as noted - Physicial Exam PE: 10/07/18 16:14 sleeping but arousable to loud voice perrl pupils 3 to 2 mm. dry mucous membranes. head atraumatic. lungs clear bilaterally heart rrr no mrg abd soft nt nd. ext wwp. left bka, no wounds right foot amputation ., no wounds. skin warm and dry. - Medical Decision Making 10/07/18 16:15 58 yo male h/o dm htn pe, dvt, pvd left bka, right foot amputation heroin abuse on methadone, here from home for ams. per sister called ambulance bc was altered. pt denies overdose but uses heroin regularily. states last used yesterday. also gets 90 mg methadone daily. was found by EMS altered , given narcan 1 mg intranasal, didnt make much change to mental status. differential ich (less likley nonfocal) , overdose, renal failure, infection such as pna or uti, intox heroin or other sedative hypnotic. plan labs narcan, ivf, ekg will likely require admissio. <Gala Herzog - Last Filed: 10/07/18 16:14> - HPI HPI: 10/07/18 16:24 The patient is a 58 year old male, with a significant past medical history of DVT/PE, HTN, HLD, DM, neuropathy, and left BKA/right foot amputation, who presents to the emergency department via EMS with, AMS and lethargy. As per EMS , he was found to be altered thus he was given 1mg of intranasal Narcan. Allergies: chlorpromazine, simvastatin Past surgical history: Right foot amputation, left BKA Social history: Current 1/2 ppd smoker x 30 yrs, heroin abuser Primary Care Physician: Dr. Arroyo ([place]) Vascular Surgery: Dr. Hough Documentation prepared by Bon Rose, acting as director global medical affairs for Gala Herzog MD. <Bon Rose - Last Filed: 10/07/18 16:24>
[2018-10-07 16:24] LABS: BASO % 0.3 % (0-2.0); EOS % 0.5 % (0-4.5); HEMATOCRIT 36.2 % (35.4-49); HEMOGLOBIN 12.2 GM/dL (11.7-16.9); LYMPH % 9.5 % (8-40); MCH 30.2 pg (25.7-33.7); MCHC 33.8 g/dl (32.0-35.9); MEAN CELL VOLUME 89.4 fl (80-96); MEAN PLT VOLUME 8.3 fl (7.5-11.1); MONO % 3.9 % (3.8-10.2); NEUT % 85.8 % (42.8-82.8); PLATELET COUNT 244 K/MM3 (134-434); RBC 4.06 M/mm3 (4.00-5.60); RDW 14.8 % (11.9-15.9); WHITE BLOOD COUNT 8.8 K/mm3 (4.0-10.0)
--- NOTE | 2018-10-07 16:36 | PDOC ---
Attending Attestation - HPI HPI: The patient is a 58 year old male, with a significant past medical history of DVT/PE, HTN, HLD, DM, neuropathy, and left BKA/right foot amputation, who was BIBA after being found altered by his sister. As per EMS, he was found to be altered and given 1mg of intranasal Narcan. Currently drowsy but arousable to loud voice. Denies any current complaints. 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 Primary Care Physician: Dr. Arroyo ([place]) Vascular Surgery: Dr. Hough - Physicial Exam PE: GENERAL: Drowsy yet easily arousable. No acute distress HEAD: No signs of trauma LUNGS: Breath sounds equal, clear to auscultation bilaterally. No wheezes, and no crackles HEART: Regular rate and rhythm, normal S1 and S2, no murmurs, rubs or gallops ABDOMEN: Soft, nontender, normoactive bowel sounds. No guarding, no rebound. No masses EXTREMITIES: Left BKA, Right ankle amputation. No edema. No clubbing or cyanosis. No cords, erythema, or tenderness NEUROLOGICAL: Cranial nerves II through XII grossly intact. SKIN: Warm, Dry, normal turgor, no rashes or lesions noted. <Fatimah Molina - Last Filed: 10/07/18 17:27> - Resident Resident Name: Tuan Amado - Medical Decision Making 10/08/18 01:37 Pt presents to the ED after brought into the ED for altered mental status after taking methadone and using heroin. Awakened after narcan. CT head performed to rule out intracranial injury, which was negative. Labs show evidence of dehydration, improved after 2 L IV hydration. Will discharge home. <Faye Valera - Last Filed: 10/08/18 01:39> Attestations - Attestations 10/07/18 17:30 Documentation prepared by Fatimah Molina, acting as medical radiation dosimetrist for Faye Valera MD. <Fatimah Molina - Last Filed: 10/07/18 17:27>
[2018-10-07 16:47] LABS: ALBUMIN 3.3 g/dl (3.4-5.0); ALK PHOS 102 U/L (45-117); ANION GAP 9 MMOL/L (8-16); BILIRUBIN,TOTAL 0.2 mg/dL (0.2-1); BLOOD UREA NITROGEN 12 mg/dL (7-18); CHLORIDE 105 mmol/L (98-107); CO2 23 mmol/L (21-32); CREATININE 1.4 mg/dL (0.55-1.3); GLUCOSE,RANDOM 189 mg/dL (74-106); POTASSIUM 4.7 mmol/L (3.5-5.1); SGOT/AST 37 U/L (15-37); SGPT/ALT 23 U/L (13-61); SODIUM 138 mmol/L (136-145); TOT PROT 7.1 g/dl (6.4-8.2)
[2018-10-07] MEDS ORDERED: SODIUM CHLORIDE 1,000 ML IV STA ×2 (17:17→18:02)
[2018-10-08 01:07] VITALS: BP 168/87; PULSE 92
--- NOTE | 2018-10-09 10:33 | EKG ---
Test Reason : Blood Pressure : / mmHG Vent. Rate : 110 BPM Atrial Rate : 110 BPM P-R Int : 186 ms QRS Dur : 090 ms QT Int : 328 ms P-R-T Axes : 060 034 055 degrees QTc Int : 443 ms SINUS TACHYCARDIA OTHERWISE NORMAL ECG WHEN COMPARED WITH ECG OF 22-MAR-2017 12:29, NONSPECIFIC T WAVE ABNORMALITY NO LONGER EVIDENT IN LATERAL LEADS Confirmed by CARLOS UGALDE, IVPUL ([id number]) on 10/09/2018 10:33:21 AM Referred By: Confirmed By:VIPUL GONZALEZ MD
== END 2018-10-08 02:25 | disposition home or self-care (01) ==
LOC: JER 15:43
DX: F11.20 Opioid dependence, uncomplicated (principal); I25.10 Atherosclerotic heart disease of native coronary artery without angina pectoris; I10 Essential (primary) hypertension; Z95.5 Presence of coronary angioplasty implant and graft; E78.5 Hyperlipidemia, unspecified; E78.00 Pure hypercholesterolemia, unspecified; E11.42 Type 2 diabetes mellitus with diabetic polyneuropathy; F17.210 Nicotine dependence, cigarettes, uncomplicated; I69.854 Hemiplegia and hemiparesis following other cerebrovascular disease affecting left non-dominant side; I69.892 Facial weakness following other cerebrovascular disease; Z89.512 Acquired absence of left leg below knee; Z89.431 Acquired absence of right foot; Z86.718 Personal history of other venous thrombosis and embolism; Z86.711 Personal history of pulmonary embolism; Z99.3 Dependence on wheelchair
CPT/HCPCS: 36415; 70450-TC; 71045-TC-FY; 80053; 80307; 83605; 85025; 93005; 93010; 99284-25; J7030